=== PATIENT | male | born 1965 | race Caucasian/White ===

== ENCOUNTER 2016-06-09 18:52 | Inpatient (IN) | payer MEDICARE, OTHER ==
[~2016-06-09] VITALS: Ht 182.9 cm; Wt 74.9 kg
[~2016-06-09 18:52] MED LIST: HALO100P IM; HALO5 PO; SERO100T PO
[2016-06-09 19:03] VITALS: BP 141/93; PULSE 86; RESP 20; TEMP 99.8
[2016-06-09] MEDS ORDERED: DIPHTH/TETANUS/ACEL PERTUSSIS (BOOSTER) 0.5 ML VIAL/PFS IM ONE (19:15)
[2016-06-09] MEDS ORDERED: LORazepam 2 MG/ML VIAL IV PUSH ONE (19:30)
[2016-06-09 19:37] LABS: AUTOMATED NEUTROPHIL # 4.4 TH/MM3 (1.8-7.7); BASOPHIL # 0.1 TH/MM3 (0-0.2); EOSINOPHIL # 0.3 TH/MM3 (0-0.4); HEMATOCRIT 41.2 % (39.0-51.0); HEMO FLAGS DIFF FINAL; LYMPH % 26.2 % (9.0-44.0); LYMPHOCYTE # 1.9 TH/MM3 (1.0-4.8); MEAN CELL VOLUME 93.7 FL (80.0-100.0); MEAN CORPUSCULAR HEMOGLOBIN 32.1 PG (27.0-34.0); MEAN CORPUSCULAR HGB CONC 34.2 % (32.0-36.0); NEUT % 59.8 % (16.0-70.0); PLATELET COUNT 268 TH/MM3 (150-450); RED CELL DISTRIBUTION WIDTH 14.6 % (11.6-17.2); WHITE BLOOD COUNT 7.4 TH/MM3 (4.0-11.0)
--- NOTE | 2016-06-09 19:59 | PD ---
HPI Chief Complaint: Psychiatric Symptoms Time Seen by Provider: 19:53 Travel History International Travel<30 days: No Contact w/Intl Traveler<30days: No Traveled to known affect area: No History of Present Illness HPI 50-year-old male that presents to the ED for evaluation of psychiatric illness. Patient was Rico acted by police after apparently he was found acting bizarre patient apparently hit his head against a wall. Patient cannot really tell me why he did it. Patient does appear to be intoxicated. He does have a chronic history of schizophrenia. He is able to answer some basic questions but does appear to get agitated a question multiple times. He denies any pain of any kind to me at this time other than the head. He does have an abrasion to his head and HIS HAD FROM PREVIOUS INJURIES. He is really not good historian so he cannot really provide me much information. From my evaluation I do not see him interactive with any internal stimuli but does appear to be under the influence of substances at this time. Per patient his pain is moderate as he cannot really give me a number. He denies any homicidal or suicidal ideation to me. He cannot really tell me why he hit his head. PFSH Past Medical History Arthritis: Yes Autoimmune Disease: Yes (HEP C) Blood Disorders: No Anxiety: Yes Depression: Yes Cardiovascular Problems: No Diabetes: No Diminished Hearing: No Endocrine: No Genitourinary: No Hepatitis: Yes (told he has hep C) Immune Disorder: Yes Musculoskeletal: Yes Neurologic: No Psychiatric: Yes Reproductive: No Respiratory: No Immunizations Current: Yes Schizophrenia: Yes Thyroid Disease: No Past Surgical History Other Surgery: No Social History Alcohol Use: Yes (Drinking since he was 18) Tobacco Use: Yes (2 ppd) Substance Use: Yes (ETOH MARIJUANA OPIATES COCAINE) Allergies-Medications (Allergen,Severity, Reaction): Coded Allergies: No Known Allergies (Verified , 06/09/16) Reported Meds & Prescriptions Reported Meds & Active Scripts Active Active Prescriptions or Reported Medications Unobtainable Review of Systems ROS Limitations: Intoxication, Altered Mental Status General / Constitutional: No: Fever, Chills, Weight Gain, Weight Loss, Other Eyes: No: Diploplia, Blurred Vision, Photophobia, Drainage, Redness, Foreign Body Sensation, Pain, Tearing, Blind Spots, Visual changes, Blindness, Other HENT: Positive: Headaches, No: Vertigo, Lightheadedness, Sore Throat, Rhinitis , Rhinorrhea, Congestion, Nosebleed, Neck Stiffness, Neck Pain, Masses, Gingival Bleeding, Dental Difficulties, Ear Discharge, Earache, Other Cardiovascular: No: Chest Pain or Discomfort, Palpitations, Irregular Rhythm, Tachycardia, Diaphoresis, Syncope, Dyspnea on exertion, Varicosities, Edema, Cyanosis, Varicosities, Phlebitis, Claudication, Other Respiratory: No: Cough, Shortness of Breath, Wheezing, Sneezing, Orthopnea, Hemoptysis, Stridor, Night Sweats, Pleuritic Pain, Other Gastrointestinal: No: Nausea, Vomiting, Diarrhea, Abdominal Pain, Hematemesis, Hematochezia, Constipation, Changes in Bowel Habits, Indigestion, Dysphagia, Loss of Appetite, Other Genitourinary: No: Urgency, Frequency, Dysuria, Nocturia, Hematuria, Decreased Urinary Output, Oliguria, Hesitancy, Dribbling, Incontinence, Pelvic Pain, Flank Pain, Dyspareunia, Discharge, Dysmenorrhea, Menorrhagia, Metorrhagia, Vaginal Bleeding, Other Musculoskeletal: No: Myalgias, Arthralgias, Limited ROM, Weakness, Cramping, Edema, Pain, Atrophy, Other Skin: Positive Lesions, No Rash, No Itching, No Dryness, No Lumps, No Hives, No Change in Pigmentation, No Change in nails, No Alopecia, No Breast Lumps, No Breast Tenderness, No Breast Swelling, No Other Neurologic: No: Weakness, Dizziness, Syncope, Focal Abnormalities, Coordination Problem, Tremor, Ataxia, Headache, Change in Mentation, Slurred Speech, Paresthesia, Incontinence, Seizures, Sensory Disturbance, Other Psychiatric: Positive: Anxiety, Disorder of Thought, Mood Disorder, Substance Abuse, No: Depression, Suicidal Ideations, Homicidal Ideation, Other Endocrine: No: Heat Intolerance, Cold Intolerance, Polyuria, Polydipsia, Other Hematologic/Lymphatic: No: Easy Bruising, Lymph Node Enlargement, Other Physical Exam Exam Limitations: Intoxication, Poor Historian Narrative GENERAL: SKIN: Warm and dry. HEAD: Atraumatic. Normocephalic. Patient does have a small abrasion to the forehead with some old healing scars from previous injuries. No active bleeding at this time. EYES: Pupils equal and round 4 mm reactive to light and accommodation. No scleral icterus. No injection or drainage. ENT: No nasal bleeding or discharge. Mucous membranes pink and moist. Tongue is midline. No uvula deviation. NECK: Trachea midline. No JVD. CARDIOVASCULAR: Regular rate and rhythm. No murmurs, S3, S4. RESPIRATORY: No accessory muscle use. Clear to auscultation. Breath sounds equal bilaterally. GASTROINTESTINAL: Abdomen soft, non-tender, nondistended. Hepatic and splenic margins not palpable. MUSCULOSKELETAL: Extremities without clubbing, cyanosis, or edema. No obvious deformities. Full range of motion of the upper and lower extremities bilaterally. 2+ pulses bilaterally. Neurovascular intact. NEUROLOGICAL: Awake and alert. No obvious cranial nerve deficits. Motor grossly within normal limits. Five out of 5 muscle strength in the arms and legs. Normal speech. PSYCHIATRIC: Appropriate mood and affect; insight and judgment normal. Data Data Last Documented VS Vital Signs Date Time Temp Pulse Resp B/P Pulse Ox O2 Delivery O2 Flow Rate FiO2 06/10/16 13:26 98.6 60 18 149/74 99 Room Air Orders Complete Blood Count With Diff (06/09/16 19:11) Comprehensive Metabolic Panel (06/09/16 19:11) Urinalysis - C+S If Indicated (06/09/16 19:11) Psych Screen (06/09/16 19:11) Drug Screen, Random Urine (06/09/16 19:11) Alcohol (Ethanol) (06/09/16 19:11) Salicylates (Aspirin) (06/09/16 19:11) Tylenol (Acetaminophen) (06/09/16 19:11) Ct Brain W/O Iv Contrast(Rout) (06/09/16 ) [id number] (Booster) Inj (Boostrix (06/09/16 19:15) Lorazepam Inj (Ativan Inj) (06/09/16 19:30) ^ Sitter (06/09/16 19:23) Lorazepam Inj (Ativan Inj) (06/09/16 21:30) Diet Regular Basic (06/10/16 Breakfast) Haloperidol (Haldol) (06/10/16 11:00) Diphenhydramine (Benadryl) (06/10/16 11:00) Lorazepam Inj (Ativan Inj) (06/10/16 10:59) Diphenhydramine Inj (Benadryl Inj) (06/10/16 10:59) Haloperidol Inj (Haldol Inj) (06/10/16 10:59) Lorazepam (Ativan) (06/10/16 11:30) Diet Regular Basic (06/10/16 Lunch) Hand, Limited (2vws) (06/10/16 ) Hand, Limited (2vws) (06/10/16 ) Labs Laboratory Tests Test 06/09/16 06/09/16 19:05 21:20 White Blood Count 7.4 TH/MM3 Red Blood Count 4.40 MIL/MM3 Hemoglobin 14.1 GM/DL Hematocrit 41.2 % Mean Corpuscular Volume 93.7 FL Mean Corpuscular Hemoglobin 32.1 PG Mean Corpuscular Hemoglobin 34.2 % Concent Red Cell Distribution Width 14.6 % Platelet Count 268 TH/MM3 Mean Platelet Volume 8.2 FL Neutrophils (%) (Auto) 59.8 % Lymphocytes (%) (Auto) 26.2 % Monocytes (%) (Auto) 9.0 % Eosinophils (%) (Auto) 4.0 % Basophils (%) (Auto) 1.0 % Neutrophils # (Auto) 4.4 TH/MM3 Lymphocytes # (Auto) 1.9 TH/MM3 Monocytes # (Auto) 0.7 TH/MM3 Eosinophils # (Auto) 0.3 TH/MM3 Basophils # (Auto) 0.1 TH/MM3 CBC Comment DIFF FINAL Differential Comment Sodium Level 139 MEQ/L Potassium Level 3.9 MEQ/L Chloride Level 104 MEQ/L Carbon Dioxide Level 25.3 MEQ/L Anion Gap 10 MEQ/L Blood Urea Nitrogen 14 MG/DL Creatinine 1.09 MG/DL Estimat Glomerular Filtration 72 ML/MIN Rate Random Glucose 82 MG/DL Calcium Level 8.9 MG/DL Total Bilirubin 0.4 MG/DL Aspartate Amino Transf 23 U/L (AST/SGOT) Alanine Aminotransferase 25 U/L (ALT/SGPT) Alkaline Phosphatase 74 U/L Total Protein 7.3 GM/DL Albumin 4.0 GM/DL Salicylates Level 2.9 MG/DL Acetaminophen Level LESS THAN 2.0 MCG/ML Ethyl Alcohol Level 42 MG/DL Urine Color YELLOW Urine Turbidity CLEAR Urine pH 6.0 Urine Specific [place] 1.010 Urine Protein NEG mg/dL Urine Glucose (UA) NEG mg/dL Urine Ketones NEG mg/dL Urine Occult Blood NEG Urine Nitrite NEG Urine Bilirubin NEG Urine Urobilinogen LESS THAN 2.0 MG/DL Urine Leukocyte Esterase NEG Urine WBC LESS THAN 1 /hpf Urine Hyaline Casts 1 /lpf Microscopic Urinalysis Comment CULT NOT INDICATED Urine Opiates Screen NEG Urine Barbiturates Screen NEG Urine Amphetamines Screen NEG Urine Benzodiazepines Screen NEG Urine Cocaine Screen NEG Urine Cannabinoids Screen POS MDM Medical Decision Making Medical Screen Exam Complete: Yes Emergency Medical Condition: Yes Medical Record Reviewed: Yes Interpretation(s) CBC & BMP Diagram 06/09/16 19:05 Alcohol 42. Tox screen negative. CT of the head negative for acute disease. Differential Diagnosis Depression versus suicidal ideation versus anxiety versus adjustment disorder versus mood disorder versus bipolar disorder versus schizophrenia versus paranoid disorder versus psychosis versus substance abuse versus alcohol abuse versus alcohol induced psychosis versus homicidality addition versus cutting versus personality disorder versus head injury versus abrasion versus laceration versus ICH Narrative Course 50-year-old male that presents to the ED for evaluation of Rico act. Patient was properly examined and was found to have signs and symptoms consistent what appears to be psychiatric illness. Patient did suffer an injury to his head that was self-inflicted. CT was ordered. Labs were ordered. Patient will be medically clear pending labs. Patient was given tetanus booster. Patient will be medically clear. Okay to be seen by psych. Mental health screening was discussed with the patient. At 11:30 AM of 06/10/16 I was asked by psych nurse to evaluate patient is apparently he was given a be moved to the psychiatric floor but he had a mental breakdown when he punched a wall with both his arms. I was asked to evaluate his hands. Patient does have some soft tissue swelling but has full range of motion of the hands. Full range of motion of the fingers. No sign of deformity although he does have some bruising. I order x-rays of both hands. X -rays were negative for acute disease other than for a possible foreign body to the right second digit. On my reexamination patient has no pain or any sign of deformity to this area. No sign of infection. No sign of entry injury. I do not recommend removing this foreign body site believe that this is likely been there for a while. Patient was medically cleared again and he is okay to go to the psychiatric unit. Diagnosis Primary Impression: Schizophrenia Qualified Code: F20.9 - Schizophrenia, unspecified type Additional Impression: Head injury, acute Qualified Code: S09.90XA - Head injury, acute, initial encounter Scripts Unable to Obtain Active Prescriptions or Reported Meds Ritesh Landaverde Jun 09, 2016 19:59
[2016-06-09 20:05] LABS: ANION GAP 10 MEQ/L (5-15)
[2016-06-09 20:08] LABS: ALKALINE PHOSPHATASE 74 U/L (45-117); ALT (GPT) 25 U/L (12-78); AST (GOT) 23 U/L (15-37); BICARBONATE 25.3 MEQ/L (21.0-32.0); BLOOD UREA NITROGEN 14 MG/DL (7-18); CHLORIDE 104 MEQ/L (98-107); GLOMERULAR FILTRATION RATE 72 ML/MIN (>89); POTASSIUM 3.9 MEQ/L (3.5-5.1); SODIUM (NA) 139 MEQ/L (136-145); TOTAL BILIRUBIN ADULT 0.4 MG/DL (0.2-1.0)
[2016-06-09 20:12] LABS: ACETAMINOPHEN LESS THAN 2.0 MCG/ML (10.0-30.0)
--- NOTE | 2016-06-09 20:27 | RADRPT ---
EXAM DATE/TIME: 06/09/2016 19:53 [facility] COMPARISON: No previous studies available for comparison. INDICATIONS : Trauma; hit head. RADIATION DOSE: 45.97 CTDIvol (mGy) MEDICAL HISTORY : Hepatitis C. Substance abuse. SURGICAL HISTORY : None. ENCOUNTER: Initial ACUITY: 1 day PAIN SCALE: 5/10 LOCATION: cranial TECHNIQUE: Multiple contiguous axial images were obtained of the head. Using automated exposure control and adj ustment of the mA and/or kV according to patient size, radiation dose was kept as low as reasonably a chievable to obtain optimal diagnostic quality images. FINDINGS: CEREBRUM: The ventricles are normal for age. No evidence of midline shift, mass lesion, hemorrhage or acute in farction. No extra-axial fluid collections are seen. POSTERIOR FOSSA: The cerebellum and brainstem are intact. The 4th ventricle is midline. The cerebellopontine angle i s unremarkable. EXTRACRANIAL: The visualized portion of the orbits is intact. SKULL: The calvaria is intact. No evidence of skull fracture. CONCLUSION: Normal examination. Michael Mcallister MD on June 09, 2016 at 20:24 Board Certified Radiologist. This report was verified electronically.
[2016-06-09] MEDS ORDERED: LORazepam 2 MG/ML VIAL IM ONE (21:30)
[2016-06-09 21:52] LABS: BLOOD, URINE NEG (NEG); COMMENT (UR) CULT NOT INDICATED; CULTURE IF INDICATED CULT NOT INDICATED; GLUCOSE,URINE NEG (NEG); HYALINE CAST, URINE 1 /lpf (RARE); KETONE, URINE NEG (NEG); NITRITE,URINE NEG (NEG); URINE COLOR YELLOW (YELLW/STRAW)
[2016-06-09 22:20] VITALS: BP 116/73; PULSE 72; RESP 19; TEMP 98.9; O2SAT 95
[2016-06-10 02:41] VITALS: BP 110/59; PULSE 75; RESP 59; O2SAT 98
[2016-06-10 04:11] LABS: AMPHETAMINE, URINE NEG (NEG); BARBITURATES, URINE NEG (NEG); COCAINE, URINE NEG (NEG)
[2016-06-10 06:11] VITALS: BP 103/65; PULSE 64; RESP 19; O2SAT 100
[2016-06-10 10:18] VITALS: BP 118/78; PULSE 86; RESP 18; O2SAT 95
[2016-06-10] MEDS ORDERED: LORazepam 2 MG/ML VIAL ONE (10:59)
[2016-06-10] MEDS ORDERED: HALOPERIDOL LACTATE 5 MG/ML AMP ONE (10:59)
[2016-06-10] MEDS ORDERED: diphenhydrAMINE HCL 50 MG/ML VIAL ONE (10:59)
[2016-06-10] MEDS ORDERED: diphenhydrAMINE HCL 50 MG CAP PO PRN (11:00)
[2016-06-10] MEDS ORDERED: HALOPERIDOL 10 MG TAB PO ONE (11:00)
[2016-06-10] MEDS ORDERED: LORazepam 2 MG TAB PO ONE (11:30)
[2016-06-10 13:26] VITALS: BP 149/74; PULSE 60; RESP 18; TEMP 98.6; O2SAT 99
--- NOTE | 2016-06-10 13:50 | RADRPT ---
EXAM DATE/TIME: 06/10/2016 13:26 [facility] COMPARISON: No previous studies available for comparison. INDICATIONS : Fall, Left hand pain. MEDICAL HISTORY : None. SURGICAL HISTORY : None. ENCOUNTER: Initial ACUITY: 2 days PAIN SCORE: 3/10 LOCATION: Left hand FINDINGS: A limited two-view examination of the left hand was obtained and not a standard 4 view trauma series limiting the sensitivity. This demonstrates soft tissue swelling over the dorsum of the hand with no acute fracture or malalignment. The metacarpals and phalanges are intact. There are no radiopaque for eign bodies. CONCLUSION: Negative limited two-view exam. Live Liang MD on June 10, 2016 at 13:48 Board Certified Radiologist. This report was verified electronically.
--- NOTE | 2016-06-10 13:52 | RADRPT ---
EXAM DATE/TIME: 06/10/2016 13:29 [facility] COMPARISON: No previous studies available for comparison. INDICATIONS : Fall, right hand pain. MEDICAL HISTORY : None. SURGICAL HISTORY : None. ENCOUNTER: Initial ACUITY: 2 days PAIN SCORE: 3/10 LOCATION: Right hand FINDINGS: Limited AP and lateral views of the right hand were obtained and not a standard 3 view trauma series limiting the sensitivity. This demonstrates no acute fracture or malalignment. There is a small radio paque foreign body along the dorsum of the second distal phalanx. This measures approximately 3 x 1 c m in diameter. The metacarpals and phalanges appear intact. There is no definite focal soft tissue ab normality. CONCLUSION: 1. Small radiopaque foreign body along the dorsum of the second distal phalanx. 2. No acute fracture or malalignment on this limited 2 view study. Live Liang MD on June 10, 2016 at 13:49 Board Certified Radiologist. This report was verified electronically.
--- NOTE | 2016-06-10 15:30 | PD ---
History of Present Illness Chief Complaint: Psychiatric Symptoms Time Seen by Provider: 15:15 Travel History International Travel<30 Days: No Contact w/Intl Traveler<30days: No Known affected area: No Legal Status Legal Status: Rico Act Rico Act Signed By: [employer] [employer] History of Present Illness: History of Present Illness 50-year-old male with history of schizophrenia and substance use disorder who presents to the ED under a BA initiated by VALERIA. He was placed under the BA after apparently he was found acting in a bizarre manner and apparently hit his head with a brick. Patient cannot really tell me why he did it. In ED he was able to answer some basic questions but was agitated. Patient reported to psych screener that " people were getting on his nerves and that he was hitting himself hard but was not trying to kill himself". Patient presents with BAL of 42 and positive toxicology for cannabinoids. As per EMR he was [place] [facility] [place] the care of Dr. Miner. IAt that time he was placed on Haldol Dec but is questionable if he has complied with his psychiatric treatment. Patient was accepted to [facility] but he became agitated at the time of transfer and was yelling and screaming obscenities as well as he began to punch the elam with his fists. He required ETO and responded well with decrease in agitated behavior. PFSH Past Medical History Arthritis: Yes Autoimmune Disease: Yes (HEP C) Blood Disorders: No Anxiety: Yes Depression: Yes Cardiovascular Problems: No Diabetes: No Diminished Hearing: No Endocrine: No Genitourinary: No Hepatitis: Yes (told he has hep C) Immune Disorder: Yes Musculoskeletal: Yes Neurologic: No Psychiatric: Yes Reproductive: No Respiratory: No Immunizations Current: Yes Schizophrenia: Yes Thyroid Disease: No Past Surgical History Other Surgery: No Psychiatric History Psychiatric History Hx Psychiatric Treatment: SCHIZOPHRENIA History of Inpatient Treatment: Yes (Last hosp in 2013) Guns or firearms in home: No Social History Patient reports he lives with roommates.Unemployed Hx Alcohol Use: Yes (Drinking since he was 18) Hx Tobacco Use: Yes (2 ppd) Hx Substance Use: Yes (ETOH MARIJUANA OPIATES COCAINE) Substance Use Type: Alcohol, Nicotine/Cigarettes, Cocaine Hx of Substance Use Treatment: Yes ([facility]) Family Psychiatric History Unable to obtain Allergies-Medications (Allergen,Severity, Reaction): Coded Allergies: No Known Allergies (Verified , 06/09/16) Reported Meds & Prescriptions Reported Meds & Active Scripts Active Active Prescriptions or Reported Medications Unobtainable Review of Systems ROS Limitations: Uncooperative, Psychotic Exam Alert: Yes [place]: Person Mood: Agitated Affect: Other (congruent) Speech: Clear, Illogical Eye Contact: Indirect Memory Intact: Comment (not tested) Delusions: No (unable to assess) Suicidal: Ideation (he deneis) Homicidal: Ideation (deneis) Insight/Judgement Poor. Impaired MDM Medical Decision Making Medical Record Reviewed: Yes Assessment/Plan 50 year old male w hx of schizophrenia and substance use who present a after he was hitting himself with a brick. While in J pod he was intermittently agitated AEB yelling and screaming as well as punching the elam with his bare hands. Patient was not appropriate for transport to another facility since there was no bed availability at this hospital. At this time I am informed that he may be admitted to [facility] [place] is a bed available. He clearly presents a risk to himself due to recent self injurious behavior. Requires inpatient treatment to stabilize, maintain safety and restart psychotropic medication. Orders Complete Blood Count With Diff (06/09/16 19:11) Comprehensive Metabolic Panel (06/09/16 19:11) Urinalysis - C+S If Indicated (06/09/16 19:11) Psych Screen (06/09/16 19:11) Drug Screen, Random Urine (06/09/16 19:11) Alcohol (Ethanol) (06/09/16 19:11) Salicylates (Aspirin) (06/09/16 19:11) Tylenol (Acetaminophen) (06/09/16 19:11) Ct Brain W/O Iv Contrast(Rout) (06/09/16 ) [id number] (Booster) Inj (Boostrix (06/09/16 19:15) Lorazepam Inj (Ativan Inj) (06/09/16 19:30) ^ Sitter (06/09/16 19:23) Lorazepam Inj (Ativan Inj) (06/09/16 21:30) Diet Regular Basic (06/10/16 Breakfast) Haloperidol (Haldol) (06/10/16 11:00) Diphenhydramine (Benadryl) (06/10/16 11:00) Lorazepam Inj (Ativan Inj) (06/10/16 10:59) Diphenhydramine Inj (Benadryl Inj) (06/10/16 10:59) Haloperidol Inj (Haldol Inj) (06/10/16 10:59) Lorazepam (Ativan) (06/10/16 11:30) Diet Regular Basic (06/10/16 Lunch) Hand, Limited (2vws) (06/10/16 ) Hand, Limited (2vws) (06/10/16 ) Results Vital Signs Date Time Temp Pulse Resp B/P Pulse Ox O2 Delivery O2 Flow Rate FiO2 06/10/16 13:26 98.6 60 18 149/74 99 Room Air 06/10/16 10:18 86 18 118/78 95 Room Air 06/10/16 06:11 64 19 103/65 100 Room Air 06/10/16 02:41 75 59 110/59 98 Room Air 06/09/16 22:20 98.9 72 19 116/73 95 Room Air 06/09/16 19:03 99.8 86 20 141/93 Laboratory Tests Test 06/09/16 06/09/16 19:05 21:20 White Blood Count 7.4 Red Blood Count 4.40 Hemoglobin 14.1 Hematocrit 41.2 Mean Corpuscular Volume 93.7 Mean Corpuscular Hemoglobin 32.1 Mean Corpuscular Hemoglobin 34.2 Concent Red Cell Distribution Width 14.6 Platelet Count 268 Mean Platelet Volume 8.2 Neutrophils (%) (Auto) 59.8 Lymphocytes (%) (Auto) 26.2 Monocytes (%) (Auto) 9.0 Eosinophils (%) (Auto) 4.0 Basophils (%) (Auto) 1.0 Neutrophils # (Auto) 4.4 Lymphocytes # (Auto) 1.9 Monocytes # (Auto) 0.7 Eosinophils # (Auto) 0.3 Basophils # (Auto) 0.1 CBC Comment DIFF FINAL Differential Comment Sodium Level 139 Potassium Level 3.9 Chloride Level 104 Carbon Dioxide Level 25.3 Anion Gap 10 Blood Urea Nitrogen 14 Creatinine 1.09 Estimat Glomerular Filtration 72 Rate Random Glucose 82 Calcium Level 8.9 Total Bilirubin 0.4 Aspartate Amino Transf 23 (AST/SGOT) Alanine Aminotransferase 25 (ALT/SGPT) Alkaline Phosphatase 74 Total Protein 7.3 Albumin 4.0 Salicylates Level 2.9 Acetaminophen Level LESS THAN 2.0 Ethyl Alcohol Level 42 Urine Color YELLOW Urine Turbidity CLEAR Urine pH 6.0 Urine Specific [place] 1.010 Urine Protein NEG Urine Glucose (UA) NEG Urine Ketones NEG Urine Occult Blood NEG Urine Nitrite NEG Urine Bilirubin NEG Urine Urobilinogen LESS THAN 2.0 Urine Leukocyte Esterase NEG Urine WBC LESS THAN 1 Urine Hyaline Casts 1 Microscopic Urinalysis Comment CULT NOT INDICATED Urine Opiates Screen NEG Urine Barbiturates Screen NEG Urine Amphetamines Screen NEG Urine Benzodiazepines Screen NEG Urine Cocaine Screen NEG Urine Cannabinoids Screen POS Diagnosis Primary Impression: Schizophrenia Additional Impression: Substance use disorder Admitting Information Admitting Physician Requests: Admit (Dr. Dunne) Departure Forms: Tests/Procedures Patient Instructions: General Instructions, Schizophrenia (ED), Head Injury (ED ), Medical Clearance for Psychiatric Care (ED) Additional Instructions: Go directly to the [facility] in [place], [place]. Prescriptions Unable to Obtain Active Prescriptions or Reported Meds Disposition: 65 DISC TO PSYCH CARE FACILITY Condition: Stable Problem Qualifiers Primary Impression: Schizophrenia Qualified Code: F20.9 - Schizophrenia, unspecified type Gisela Guallpa Jun 10, 2016 15:30
[2016-06-10] MEDS ORDERED: MAGNESIUM HYDROXIDE SUSP 30 ML CUP PO PRN (16:00)
[2016-06-10] MEDS ORDERED: HALOPERIDOL LACTATE 5 MG/ML AMP IM PRN (16:00)
[2016-06-10] MEDS ORDERED: BENZTROPINE MESYLATE 1 MG TAB PO PRN (16:00)
[2016-06-10] MEDS ORDERED: ACETAMINOPHEN 325 MG TAB PO PRN (16:00)
[2016-06-10] MEDS ORDERED: ALUMINUM/MAGNESIUM/SIMETH 30 ML CUP PO PRN (16:00)
[2016-06-10] MEDS ORDERED: LORazepam 2 MG/ML VIAL IM PRN (16:15)
[2016-06-10] MEDS ORDERED: LORazepam 1 MG TAB PO PRN (16:15)
[2016-06-10 16:18] VITALS: BP 86/50; PULSE 78; RESP 18; O2SAT 93
[2016-06-10 17:00] VITALS: BP 123/59; PULSE 95; RESP 18; TEMP 99.2; O2SAT 95
[2016-06-11 05:29] VITALS: BP 110/64; PULSE 98; RESP 18; TEMP 98.2; O2SAT 97
[2016-06-11 08:11] LABS: ANION GAP 8 MEQ/L (5-15); BICARBONATE 24.4 MEQ/L (21.0-32.0); BLOOD UREA NITROGEN 12 MG/DL (7-18); CHLORIDE 108 MEQ/L (98-107); GLOMERULAR FILTRATION RATE 94 ML/MIN (>89); POTASSIUM 4.3 MEQ/L (3.5-5.1); SODIUM (NA) 140 MEQ/L (136-145)
[2016-06-11 08:13] LABS: HDL CHOLESTEROL 68.3 MG/DL (40.0-60.0); LDL CHOLESTEROL 48 MG/DL (0-99)
[2016-06-11] MEDS ORDERED: LORazepam 2 MG/ML VIAL IV PUSH PRN ×4 (11:30)
[2016-06-11] MEDS ORDERED: fluPHENAZine HCL 25 MG/10 ML VIAL IM PRN (11:30)
[2016-06-11] MEDS ORDERED: LORazepam 2 MG TAB PO PRN (11:30)
[2016-06-11] MEDS ORDERED: BENZTROPINE MESYLATE 2 MG/2 ML VIAL IM PRN (11:30)
[2016-06-11] MEDS ORDERED: FLUMAZENIL 0.5 MG/5 ML VIAL IV PUSH PRN (11:30)
[2016-06-11] MEDS ORDERED: LORazepam 1 MG TAB PO PRN (11:30)
--- NOTE | 2016-06-11 11:30 | HHI.HP ---
Provisional Diagnosis Admission Date Jun 10, 2016 at 15:57 [place] I. 1. Schizophrenia, paranoid type, acute exacerbation 2. Alcohol abuse 3. Cannabis abuse [place] II. Deferred [place] V. GAF is 15 presently Certification of Person's Competence To Provide Express and Informed Consent I have personally examined Sheng De Leon , a person being served at [facility] on, Jun 11, 2016 11:29. Express and informed consent means consent voluntarily given in writing, by a competent person, after sufficient explanation and disclosure of the subject matter involved to enable the person to make a knowing and willful decision without any element of force, fraud, deceit, duress, or other form of constraint or coercion. This person is 18 years of age or older, is not now known to be incompetent to consent to treatment with a guardian advocate, and does not have a health care surrogate or proxy currently making medical treatment decisions. I have found this person to be one of the following: [] Competent to provide express and informed consent, as defined above, for voluntary admission to this facility and is competent to provide express and informed consent for treatment. He/she has the consistent capacity to make well reasoned, willful, and knowing decisions concerning his or her medical or mental health treatment. The person fully and consistently understands the purpose of the admission for examination/placement and is fully capable of personally exercising all rights assured under [place] [x] Incompetent to provide express and informed consent to voluntary admission, and this is incompetent to provide express and informed consent to treatment. The person must be transferred to involuntary status and a petition for a guardian advocate filed with the Circuit Court. [] Refusing to provide express and informed consent to voluntary admission but is competent to provide express and informed consent for treatment. The person must be discharged or transferred to involuntary status. Form shall be completed within 24 hours of a person's arrival at the receiving facility and filed in the clinical record of each person: 1. Admitted on a voluntary basis 2. Permitted to provide express and informed consent to his/her own treatment 3. Allowed to transfer from involuntary to voluntary status 4. Prior to permitting a person to consent to his or her own treatment after having been previously found incompetent to consent to treatment. History of Present Illness Capacity: Lacks Capacity HPI Mr. De Leon is a 50-year-old male with history of schizophrenia and substance use issues who presents under a [place] act after intentionally hitting his head. Patient was evaluated medically in the ED by the ED provider and psychiatrically by the psychiatric nurse practitioner. Patient was agitated in the ED and required ETO. Reviewing the electronic medical record, I see an extensive history of prior psychiatric hospitalizations, most recently [place] [address] Miner. It appears he has been treated with Haldol Decanoate here in the past. Patient seen and examined with counselor nursing staff. Chart reviewed. Case discussed with nurse on the inpatient psychiatric unit. On my examination today , the patient is extremely irritable. He is unable to tolerate all that the briefest of interviews before becoming explosively angry and threatening. He daren, "you took enough blood to float a goddamn boat!" Of the circumstances here, he says, "I was in a field beating myself with a piece of porcelain." He is frankly internally stimulated and mutters to himself more or less continuously when he is not answering a direct question. He exhibits echolalia and echopraxia. He is paranoid. His affect is severely dysphoric. He becomes so agitated and threatening that an assault on the treatment team seems imminent , and we have to conclude the interview for safety. He does calm himself somewhat once we have removed ourselves, and he does not receive an ETO at this time. Patient's outpatient outpatient case manager, Felisha Hernandez is visiting the unit and notes [place]. She notes that he has done well with Prolixin PO and Dec in the past. Medication adherence is an issue for this patient. I am unable to obtain any past psychiatric, family, chemical dependency or social history from this patient at this time because of his degree of agitation and psychiatric impairment. Review of Systems ROS Limitations: Uncooperative, Combative, Psychotic, Poor Historian Other No reported somatic complaints. Past Psych History Psychological trauma history Unable to obtain Violence risk - others (6 mos) Extremely high risk. Agitated and psychotic. Violence risk - self (6 mos) High risk, chiefly due to self-neglect. Substance Abuse History Drugs/Alcohol past 12 months Unable to obtain Past Family Social History Coded Allergies: No Known Allergies (Verified , 06/09/16) Past Medical History See electronic medical record Discontinued Reported Medications Quetiapine Fumarate 100 mg (Seroquel 100 mg)100 Mg [id number] Mg PO HS 06/24/13 Haldol [id number] Mg/M2 100 Mg/Ml [id number] Mg IM Q28D PRN (next due on 07/15/2013) 06/24/13 Haloperidol (Haldol)5 Mg Tab5 Mg PO HS 06/24/13 Current Medications Medications (Trade) Dose Ordered Sig/Tania Route Start Time Stop Time Status Last Admin (Tylenol) 650 mg Q4H PRN PO 06/10/16 16:00 (Milk Of Magnesia Liq) 30 ml DAILY PRN PO 06/10/16 16:00 (Mag-Al Plus Susp Liq) 30 ml Q6H PRN PO 06/10/16 16:00 (Cogentin) 1 mg Q12H PRN PO 06/10/16 16:00 (Haldol Inj) 5 mg Q6H PRN IM 06/10/16 16:00 (Ativan) 1 mg Q6H PRN PO 06/10/16 16:15 (Ativan Inj) 1 mg Q6H PRN IM 06/10/16 16:15 Family History Unable to obtain Social History Unable to obtain Patient's Strengths (min. 2) In a monitored setting. Verbally fluent. Physical Exam Physical examination completed by ED provider. On my examination today I do note patient's for head wound but the patient otherwise appears to be in no acute physical distress. Except for the echopraxia, no motoric abnormalities noted. Labs and vital signs reviewed. Vital Signs Vital Signs Date Time Temp Pulse Resp B/P Pulse Ox O2 Delivery O2 Flow Rate FiO2 06/11/16 05:29 98.2 98 18 110/64 97 06/10/16 16:18 Room Air Lab Results Item Value Date Time White Blood Count 7.4 TH/MM3 06/09/161904 Hemoglobin 14.1 GM/DL 06/09/161904 Platelet Count 268 TH/MM3 06/09/161904 Sodium Level 140 MEQ/L 06/11/16714 Potassium Level 4.3 MEQ/L 06/11/16714 Chloride Level 108 MEQ/L H 06/11/16 07 Carbon Dioxide Level 24.4 MEQ/L 06/11/1615 Blood Urea Nitrogen 12 MG/DL 06/11/16 0715 Creatinine 0.86 MG/DL 06/11/1615 Aspartate Amino Transf (AST/SGOT) 23 U/L 06/09/161904 Alanine Aminotransferase (ALT/SGPT) 25 U/L 06/09/161904 Alkaline Phosphatase 74 U/L 06/09/161904 Urine Cannabinoids Screen POS H 06/09/162119 Ethyl Alcohol Level 42 MG/DL H 06/09/161904 Urinalysis bland Last Impressions Hand X-Ray 06/10/16 0000 Signed Impressions: Service Date/Time: Friday, June 10, 2016 13:29 - CONCLUSION: 1. Small radiopaque foreign body along the dorsum of the second distal phalanx. 2. No acute fracture or malalignment on this limited 2 view study. Live Liang MD Head CT 06/09/16 0000 Signed Impressions: Service Date/Time: Thursday, June 09, 2016 19:53 - CONCLUSION: Normal examination. Michael Mcallister MD Mental Status Examination Patient is in hospital gown. He is extremely disheveled and malodorous. He is awake and alert and oriented to person and knows that he is in the hospital. Echopraxia is present. Speech is loud and angry. Language and fund of knowledge are difficult to assess given his degree of psychiatric impairment. Mood and affect are dysphoric and restricted. Thought process somewhat disorganized. Associations loose. Paranoia is present and marked. Patient is frankly internally stimulated. He is actively threatening towards the treatment team. No suicidal ideation voiced but the patient is most certainly unreliable to contract for safety. Insight and judgment are presently very poor. Assessment & Plan Problem List: (1) Schizophrenia ICD Code: F20.9 (2) Alcohol abuse ICD Code: F10.10 (3) Cannabis abuse ICD Code: F12.10 Assessment & Plan This is a 50-year-old male with psychiatric history as detailed above who presents on a [place] act following self injury. On my examination today, the patient is floridly psychotic, agitated and threatening. He is frankly internally stimulated and paranoid. Without proper care and treatment he would doubtless pose a grave risk of harm to himself or others in his present state. We will admit the patient to the inpatient psychiatric unit for safety, observation and stabilization. Admit inpatient. Involuntary status. I have completed first opinion. Consult for second opinion. Request healthcare surrogate and guardian advocate. Violent precautions. Given prior good response reported by his outpatient case manager to Prolixin, I will order Prolixin by mouth with IM backup with plans to titrate to effect. Plan for Prolixin Decanoate. Haldol as needed for agitation, Ativan as needed for anxiety, Cogentin as needed for EPS. CIWA with Ativan as needed for withdrawal. Thiamine and folate. Seizure and fall precautions. I will order bacitracin for the patient's for head wound. Vitals every shift. Counselor to see. Disposition planning. Estimated length of stay: 10-13 days. Discharge Planning Pending psychiatric stabilization Request HC Surrog/Guard Advoc?: Yes Problem Qualifiers (1) Schizophrenia: Qualified Code: F20.0 - Paranoid schizophrenia Sheldon Dunne MD Jun 11, 2016 11:30
[2016-06-11] MEDS: FOLIC ACID 1 MG TAB PO SCH (13:01)
[2016-06-11] MEDS: THIAMINE HCL 100 MG TAB PO SCH (13:01)
[2016-06-11 15:45] LABS: HEMOGLOBIN A1a 1.1 %; HEMOGLOBIN A1b 1.6 %; HEMOGLOBIN Ao 84.3 %; HEMOGLOBIN F 0.2 %; HEMOGLOBIN LA1C 2.1 %; HEMOGLOBIN P3 3.9 %
[2016-06-11] MEDS ORDERED: LORazepam 2 MG/ML VIAL IM PRN (16:15)
[2016-06-11] MEDS: BACITRACIN TOP OINT 15 GM TUBE TOP SCH (20:58)
[2016-06-12 06:11] VITALS: BP 102/64; PULSE 85; RESP 17; TEMP 97.5; O2SAT 95
[2016-06-12] MEDS: THIAMINE HCL 100 MG TAB PO SCH (09:00)
[2016-06-12] MEDS: FOLIC ACID 1 MG TAB PO SCH (09:00)
[2016-06-12] MEDS: BACITRACIN TOP OINT 15 GM TUBE TOP SCH ×2 (09:00→21:00)
--- NOTE | 2016-06-12 09:49 | HHI.PYPN ---
Subjective Remarks Patient seen and examined with counselor. Chart reviewed. Case discussed with nursing staff. Medications remain on hold for lack of consent. On my examination today, the patient is lying calmly in his room but once engaged becomes explosively angry and irritable again. He continues to exhibit echolalia and echopraxia. He is frankly internally stimulated and muttering to himself. Condition is more or less unchanged from yesterday. Review of Systems ROS Limitations: Uncooperative, Psychotic, Poor Historian Other Unable to obtain in any meaningful sense from the patient at this time Objective Alert: Yes [place]: Person Mood: Agitated (remains quite easily agitated) Affect: Labile Memory Intact: Comment (not formally assessed) Hallucinations: Auditory (appears frankly internally stimulated and is muttering to himself) Delusions: Yes Delusion Type: Paranoid Suicidal: Ideation (no SI voiced but patient is unreliable to contract for safety.) Homicidal: Ideation (explosive temper. No homicidal ideation voiced.) Insight/Judgement Very poor at present Remarks Besides the echopraxia, no motoric abnormalities noted. No signs of withdrawal noted. Thought process fairly disorganized. Labs Labs reviewed. No new labs. Vitals/IOs Vital Signs Date Time Temp Pulse Resp B/P Pulse Ox O2 Delivery O2 Flow Rate FiO2 06/12/16 06:11 97.5 85 17 102/64 95 06/10/16 16:18 Room Air Assessment & Plan Problem List: (1) Schizophrenia ICD Code: F20.9 (2) Alcohol abuse ICD Code: F10.10 (3) Cannabis abuse ICD Code: F12.10 Assessment & Plan Still awaiting consents for psychotropic medications. Patient is desperately in need of antipsychotic action at this point and remains decompensated to a severe degree. He remains at exquisitely high risk for violence if provoked. I did try to call the number for his friend Shazia in the EMR but no one picked up. Continue to monitor for safety on the inpatient psychiatric unit. Continue other medications and care as ordered. Justification for Cont. Inpt. Impairments in safety. Impairments in reality testing. Impairments in social function. Very high risk for decompensation in a less restrictive environment. Discharge Planning Pending psychiatric stabilization. Request HC Surrog/Guard Advoc?: Yes Problem Qualifiers (1) Schizophrenia: Qualified Code: F20.0 - Paranoid schizophrenia Sheldon Dunne MD Jun 12, 2016 09:49
--- NOTE | 2016-06-12 12:28 | PD.CONS ---
Provisional Diagnosis Admission Date Jun 10, 2016 at 15:57 [place] I. 1. Schizophrenia, paranoid type, acute exacerbation 2. Alcohol abuse 3. Cannabis abuse [place] II. Deferred [place] V. GAF is 15 presently History of Present Illness Service Psychiatry Consult Requested By Primary Care Physician Unknown HPI Mr. De Leon is a 50-year-old male with history of schizophrenia and substance use issues who presents under a [place] act after intentionally hitting his head. Patient was evaluated medically in the ED by the ED provider and psychiatrically by the psychiatric nurse practitioner. Patient was agitated in the ED and required ETO. Reviewing the electronic medical record, I see an extensive history of prior psychiatric hospitalizations, most recently [place] [address] Miner. It appears he has been treated with Haldol Decanoate here in the past. Patient seen and examined with counselor nursing staff. Chart reviewed. Case discussed with nurse on the inpatient psychiatric unit. On my examination today , the patient is extremely irritable. He is unable to tolerate all that the briefest of interviews before becoming explosively angry and threatening. He daren, "you took enough blood to float a goddamn boat!" Of the circumstances here, he says, "I was in a field beating myself with a piece of porcelain." He is frankly internally stimulated and mutters to himself more or less continuously when he is not answering a direct question. He exhibits echolalia and echopraxia. He is paranoid. His affect is severely dysphoric. He becomes so agitated and threatening that an assault on the treatment team seems imminent , and we have to conclude the interview for safety. He does calm himself somewhat once we have removed ourselves, and he does not receive an ETO at this time. Patient's outpatient case technician, Felisha Hernandez is visiting the unit and notes that [place]. She notes that he has done well with Prolixin PO and Dec in the past. Medication adherence is an issue for this patient. I am unable to obtain any past psychiatric, family, chemical dependency or social history from this patient at this time because of his degree of agitation and psychiatric impairment. 06/12/16 Above note dictated by Dr. Dunne reviewed and agreed with. Patient is a 50- year-old white male well-known to us from prior admissions admitted to Dr. dunne under the [place] act. Chart reviewed. Patient seen with nurse. Patient markedly disorganized psychotic somewhat irritable intimidating. Dr. Dunne first opinion petition supporting [place] act. I agree. Patient meets criteria for involuntary psychiatric hospitalization under the [place] act. Thus I'll cosign second opinion petition supporting [place] act Past Family Social History Coded Allergies: No Known Allergies (Verified , 06/09/16) Discontinued Reported Medications Quetiapine Fumarate 100 mg (Seroquel 100 mg)100 Mg [id number] Mg PO HS 06/24/13 Haldol [id number] Mg/M2 100 Mg/Ml Etg238 Mg IM Q28D PRN (next due on 07/15/2013) 06/24/13 Haloperidol (Haldol)5 Mg Tab5 Mg PO HS 06/24/13 Current Medications Medications (Trade) Dose Ordered Sig/Tania Route Start Time Stop Time Status Last Admin (Tylenol) 650 mg Q4H PRN PO 06/10/16 16:00 (Milk Of Magnesia Liq) 30 ml DAILY PRN PO 06/10/16 16:00 (Mag-Al Plus Susp Liq) 30 ml Q6H PRN PO 06/10/16 16:00 (Cogentin) 1 mg Q12H PRN PO 06/10/16 16:00 (Haldol Inj) 5 mg Q6H PRN IM 06/10/16 16:00 Hold (Ativan) 2 mg Q6H PRN PO 06/11/16 16:15 Hold (Ativan Inj) 2 mg Q6H PRN IM 06/11/16 16:15 Hold (Cogentin Inj) 1 mg Q12HR PRN IM 06/11/16 11:30 (Prolixin) 5 mg Q12HR PO 06/11/16 11:30 Hold (Prolixin Inj) 2.5 mg Q12HR PRN IM 06/11/16 11:30 Hold (Romazicon Inj) 0.2 mg Q1M PRN IV PUSH 06/11/16 11:30 (Ativan) 1 mg Q4H PRN PO 06/11/16 11:30 06/11/16 20:59 (Ativan Inj) 1 mg Q4H PRN IV PUSH 06/11/16 11:30 (Ativan) 2 mg Q2H PRN PO 06/11/16 11:30 (Ativan Inj) 2 mg Q2H PRN IV PUSH 06/11/16 11:30 (Ativan Inj) 2 mg Q1H PRN IV PUSH 06/11/16 11:30 (Ativan Inj) 2 mg Q15M PRN IV PUSH 06/11/16 11:30 (Vitamin B1) 100 mg DAILY PO 06/11/16 11:30 06/12/16 09:00 (Folate) 1 mg DAILY PO 06/11/16 11:30 06/12/16 09:00 (Baciguent Oint) 1 applic Q12HR TOP 06/11/16 21:00 06/12/16 09:00 Patient's Strengths (min. 2) In a monitored setting. Verbally fluent. Physical Exam Vital Signs Vital Signs Date Time Temp Pulse Resp B/P Pulse Ox O2 Delivery O2 Flow Rate FiO2 06/12/16 06:11 97.5 85 17 102/64 95 06/10/16 16:18 Room Air Mental Status Examination Speech: Rapid, Circumstantial, Tangential Orientation: Place Memory: Impaired (describe) Thought Process: Loose Association Thought Content: Paranoid Hallucination Type: None (denies that appears to be responding to internal stimuli) Attention and Concentration: Easily Distracted Suicidal Ideation: Yes (states he always has suicidal ideation) Previous Suicide Attempts: No Homicidal Ideation: No Previous Homicide Attempts: No Insight: Poor Judgement: Poor Affect: Other (slight increased range and intensity) Mood: Angry, Irritable Motor Activity: Normal gait Assessment & Plan Problem List: (1) Schizophrenia ICD Code: F20.9 (2) Alcohol abuse ICD Code: F10.10 (3) Cannabis abuse ICD Code: F12.10 Assessment & Plan Estimated LOS: days Request HC Surrog/Guard Advoc?: Yes Problem Qualifiers (1) Schizophrenia: Qualified Code: F20.0 - Paranoid schizophrenia Alexys Puga MD Jun 12, 2016 12:28
[2016-06-12 20:06] VITALS: BP 124/71; PULSE 76; RESP 18; TEMP 98.1; O2SAT 96
[2016-06-13 05:55] VITALS: BP 118/61; PULSE 72; RESP 17; TEMP 97.9; O2SAT 95
[2016-06-13] MEDS: THIAMINE HCL 100 MG TAB PO SCH (08:09)
[2016-06-13] MEDS: FOLIC ACID 1 MG TAB PO SCH (08:09)
[2016-06-13] MEDS: BACITRACIN TOP OINT 15 GM TUBE TOP SCH ×2 (08:25→20:26)
--- NOTE | 2016-06-13 12:12 | HHI.PYPN ---
Subjective Remarks Patient seen and examined with counselor. Chart reviewed. Case discussed with nursing staff. On my examination today, patient remains quite irritable but is a little less explosive. He is discharged focused. He says that his sleep is poor and requests Unisom. He says that he might try to take a shower today. He remains frankly internally stimulated and paranoid. He says, "I don't think you can change me, doc." He maintains that he was adherent with medications, which apparently included Haldol, prior to admission. Review of Systems ROS Limitations: Psychotic, Poor Historian Other No somatic complaints today Objective Alert: Yes [place]: Person, Place Mood: Angry Affect: Labile Memory Intact: Comment (not formally assessed) Hallucinations: Auditory (remains int stim) Delusions: Yes Delusion Type: Paranoid Suicidal: Ideation (No SI) Homicidal: Ideation (No HI) Insight/Judgement Poor Remarks Difficult to tell, now that he is calmer, if he has some dyskinesias in the mouth or if he is just constantly muttering under his breath. No other abnormal motor movements noted. No signs of withdrawal noted. Labs He hasn't scored on the CIWA scale to receive Ativan since the . Labs reviewed. Vitals/IOs Vital Signs Date Time Temp Pulse Resp B/P Pulse Ox O2 Delivery O2 Flow Rate FiO2 06/13/16 05:55 97.9 72 17 118/61 95 06/10/16 16:18 Room Air Assessment & Plan Problem List: (1) Schizophrenia ICD Code: F20.9 (2) Alcohol abuse ICD Code: F10.10 (3) Cannabis abuse ICD Code: F12.10 Assessment & Plan Counselor has been able to contact friend who can provide consent for medications. Hopeful to initiate antipsychotic therapy this evening therefore. Since he has not been scoring on the CIWA scale, I will discontinue and monitor. Continue to monitor on the inpatient unit. Continue other medications and care as ordered. Justification for Cont. Inpt. Impairments in safety, self-care, reality construction, social function. Hopeful to pursue medication management now that we have a potential healthcare surrogate. High risk for decompensation. Discharge Planning Pending psychiatric stabilization. Request HC Surrog/Guard Advoc?: Yes Problem Qualifiers (1) Schizophrenia: Qualified Code: F20.0 - Paranoid schizophrenia Sheldon Dunne MD Jun 13, 2016 12:12
[2016-06-13] MEDS ORDERED: ZOLPIDEM TARTRATE 5 MG TAB PO PRN (16:30)
[2016-06-13 19:32] VITALS: BP 101/67; PULSE 68; RESP 16; TEMP 98.4; O2SAT 98
[2016-06-14 06:03] VITALS: BP 94/63; PULSE 65; RESP 16; TEMP 97.2
[2016-06-14] MEDS: FOLIC ACID 1 MG TAB PO SCH (09:00)
[2016-06-14] MEDS: BACITRACIN TOP OINT 15 GM TUBE TOP SCH ×2 (09:00→20:56)
[2016-06-14] MEDS: THIAMINE HCL 100 MG TAB PO SCH (09:22)
--- NOTE | 2016-06-14 10:09 | HHI.PYPN ---
Subjective Remarks Patient seen and examined with counselor and nurse. Chart reviewed. Case discussed with nursing staff. On my examination today, the patient is irritable and continues to mutter to himself. He denies audiovisual hallucinations but appears frankly internally stimulated as I said. He denies any suicidal or homicidal ideation. He remains fairly paranoid. He declines chemical dependency referral on discharge. Nursing staff informs me that we have obtained consents for medications and can begin treatment this morning. Review of Systems ROS Limitations: Psychotic, Poor Historian Other No physical complaints today Objective Alert: Yes [place]: Person, Place Mood: Angry Affect: Restricted (dysphoric) Memory Intact: Comment (not formally assessed) Hallucinations: Auditory (Int stim) Delusions: Yes Delusion Type: Paranoid Suicidal: Ideation (No SI) Homicidal: Ideation (No HI) Insight/Judgement Poor Remarks Besides possible oral dyskinesias noted yesterday, no other abnormal motor movements noted. No signs of withdrawal noted. Thought process perhaps a little more linear. Speech rambling. Labs Labs reviewed. No new labs. CIWA<8 since 06/11. Vitals/IOs Vital Signs Date Time Temp Pulse Resp B/P Pulse Ox O2 Delivery O2 Flow Rate FiO2 06/14/16 06:03 97.2 65 16 94/63 06/13/16 19:32 98 06/10/16 16:18 Room Air Assessment & Plan Problem List: (1) Schizophrenia ICD Code: F20.9 (2) Alcohol abuse ICD Code: F10.10 (3) Cannabis abuse ICD Code: F12.10 Assessment & Plan Initiate Prolixin this morning as planned. Weekend rounding physician, please consider titrating Prolixin to target psychosis as appropriate. Discontinue CIWA scale as the patient has had scores less than 8 for 3 days now. Continue to monitor on the inpatient unit. Continue other medications and care as ordered. Justification for Cont. Inpt. Impairment in self-care. Impairment in reality construction. Impairment in social function. Medication changes. High risk for decompensation in a lower level of care. Discharge Planning Pending psychiatric stabilization Request HC Surrog/Guard Advoc?: Yes Problem Qualifiers (1) Schizophrenia: Qualified Code: F20.0 - Paranoid schizophrenia Sheldon Dunne MD Jun 14, 2016 10:09
[2016-06-14 19:27] VITALS: BP 141/66; PULSE 71; RESP 16; TEMP 98.2; O2SAT 97
[2016-06-15 06:21] VITALS: BP 104/62; PULSE 66; RESP 18; TEMP 98; O2SAT 97
[2016-06-15] MEDS: BACITRACIN TOP OINT 15 GM TUBE TOP SCH ×2 (09:00→20:44)
[2016-06-15] MEDS: LORazepam 1 MG TAB PO PRN (09:27)
[2016-06-15] MEDS: FOLIC ACID 1 MG TAB PO SCH (09:27)
[2016-06-15] MEDS: THIAMINE HCL 100 MG TAB PO SCH (09:27)
--- NOTE | 2016-06-15 13:03 | HHI.PYPN ---
Subjective Remarks Pt seen and discussed with staff. Pt became agitated toward RN this morning and accused her of plotting to steal his money. He was given ativan X1 which calmed pt. He denies AH but appears to be responding to internal stimuli. He is paranoid and bizarre, conducting most of interview with head covered in blanket. He denies medication side effects and is compliant. No SI/HI. Objective Alert: Yes [place]: Person, Place Mood: Agitated Affect: Restricted (dysphoric) Memory Intact: Comment (not formally assessed) Hallucinations: Auditory (Int stim) Delusions: Yes Delusion Type: Paranoid Suicidal: Ideation (No SI) Homicidal: Ideation (No HI) Insight/Judgement poor Vitals/IOs Vital Signs Date Time Temp Pulse Resp B/P Pulse Ox O2 Delivery O2 Flow Rate FiO2 06/15/16 06:21 98.0 66 18 104/62 97 Assessment & Plan Problem List: (1) Schizophrenia ICD Code: F20.9 (2) Alcohol abuse ICD Code: F10.10 (3) Cannabis abuse ICD Code: F12.10 Assessment & Plan Continue current tx plan. Estimated LOS: days Justification for Cont. Inpt. impairments in reality construction, safety Request HC Surrog/Guard Advoc?: Yes Problem Qualifiers (1) Schizophrenia: Qualified Code: F20.0 - Paranoid schizophrenia Anna De La Cruz MD Jun 15, 2016 13:03
[2016-06-15 20:08] VITALS: BP 105/63; PULSE 69; RESP 19; TEMP 98.5; O2SAT 98
[2016-06-16 06:25] VITALS: BP 104/62; PULSE 65; RESP 16; TEMP 98.1; O2SAT 97
[2016-06-16] MEDS: THIAMINE HCL 100 MG TAB PO SCH (08:37)
[2016-06-16] MEDS: BACITRACIN TOP OINT 15 GM TUBE TOP SCH ×2 (08:38→20:52)
[2016-06-16] MEDS: FOLIC ACID 1 MG TAB PO SCH (08:41)
--- NOTE | 2016-06-16 14:21 | HHI.PYPN ---
Subjective Remarks Pt seen and discussed with staff. Staff report that last night pt was engaging in bizarre behaviors and exhibited echolalia and echopraxia. Today he has been more organized and agitation has decreased. He engages more in interview and denies medication side effects. He is compliant with medications and states that AH are "quieter today". No SI/HI. Review of Systems Psychiatric: COMPLAINS OF: Hallucinations Objective Alert: Yes [place]: Person, Place Mood: Calm Affect: Restricted Memory Intact: Comment (not formally assessed) Hallucinations: Auditory (Int stim) Delusions: Yes Delusion Type: Paranoid Suicidal: Ideation (No SI) Homicidal: Ideation (No HI) Insight/Judgement poor Vitals/IOs Vital Signs Date Time Temp Pulse Resp B/P Pulse Ox O2 Delivery O2 Flow Rate FiO2 06/16/16 06:25 98.1 65 16 104/62 97 Assessment & Plan Problem List: (1) Schizophrenia ICD Code: F20.9 (2) Alcohol abuse ICD Code: F10.10 (3) Cannabis abuse ICD Code: F12.10 Assessment & Plan Continue current tx plan. Estimated LOS: days Justification for Cont. Inpt. impairments in reality construction and social functioning Request HC Surrog/Guard Advoc?: Yes Problem Qualifiers (1) Schizophrenia: Qualified Code: F20.0 - Paranoid schizophrenia Anna De La Cruz MD Jun 16, 2016 14:21
[2016-06-16 18:00] VITALS: BP 110/65; PULSE 59; RESP 16; TEMP 99; O2SAT 92
[2016-06-17 06:22] VITALS: BP 113/68; PULSE 58; RESP 18; TEMP 97.5; O2SAT 96
[2016-06-17] MEDS: FOLIC ACID 1 MG TAB PO SCH (08:39)
[2016-06-17] MEDS: THIAMINE HCL 100 MG TAB PO SCH (08:40)
[2016-06-17] MEDS: BACITRACIN TOP OINT 15 GM TUBE TOP SCH ×2 (09:00→21:10)
--- NOTE | 2016-06-17 11:08 | HHI.PYPN ---
Subjective Remarks Patient seen and examined with counselor. Chart reviewed. Case discussed with nursing staff who reports patient remains somewhat irritable but is less explosive. He is receiving Prolixin as ordered. On my examination today, the patient is somewhat discharge focused. He remains somewhat paranoid. He denies audiovisual hallucinations but appears internally preoccupied. He denies side effects from the Prolixin. Review of Systems ROS Limitations: Poor Historian Other No physical complaints today Objective Alert: Yes [place]: Person, Place Mood: Calm Affect: Restricted (dysphoric) Memory Intact: Comment (not formally assessed) Hallucinations: Auditory (denies audiovisual hallucinations) Delusions: Yes Delusion Type: Paranoid Suicidal: Ideation (No SI) Homicidal: Ideation (No HI) Insight/Judgement Poor Remarks No abnormal motor movements noted. Patient remains somewhat disheveled. Thought process more linear than before the weekend. Speech remains a little terse but otherwise within normal limits. Labs Labs reviewed. No new labs. Vitals/IOs Vital Signs Date Time Temp Pulse Resp B/P Pulse Ox O2 Delivery O2 Flow Rate FiO2 06/17/16 06:22 97.5 58 18 113/68 96 Assessment & Plan Problem List: (1) Schizophrenia ICD Code: F20.9 (2) Alcohol abuse ICD Code: F10.10 (3) Cannabis abuse ICD Code: F12.10 Assessment & Plan Titrate Prolixin to 5 mg 3 times a day to manage residual psychosis. There is definite trajectory of improvement with this medication in this patient. Plan remains for Prolixin Decanoate prior to discharge. Continue other medications and care as ordered. Justification for Cont. Inpt. Impairment in reality construction and social function. High risk for decompensation pending psychiatric stabilization. Discharge Planning Pending psychiatric stabilization. Request HC Surrog/Guard Advoc?: Yes Problem Qualifiers (1) Schizophrenia: Qualified Code: F20.0 - Paranoid schizophrenia Sheldon Dunne MD Jun 17, 2016 11:08
[2016-06-17] MEDS ORDERED: fluPHENAZine HCL 25 MG/10 ML VIAL IM PRN (13:00)
[2016-06-17 18:00] VITALS: BP 109/63; PULSE 63; RESP 18; TEMP 98.1; O2SAT 97
[2016-06-17] MEDS: LORazepam 1 MG TAB PO PRN (21:10)
[2016-06-18 05:59] VITALS: BP 105/57; PULSE 75; RESP 17; TEMP 98
[2016-06-18] MEDS: FOLIC ACID 1 MG TAB PO SCH (08:42)
[2016-06-18] MEDS: THIAMINE HCL 100 MG TAB PO SCH (08:42)
[2016-06-18] MEDS: BACITRACIN TOP OINT 15 GM TUBE TOP SCH ×2 (08:42→21:35)
--- NOTE | 2016-06-18 12:34 | HHI.PYPN ---
Subjective Remarks Patient seen and examined with counselor and nurse in treatment team. Chart reviewed. Case discussed with nursing staff, counselor and occupational therapist. On my examination today, the patient is significantly calmer and less irritable than in previous days. He denies any suicidal or homicidal ideation. He continues to appear somewhat internally preoccupied and endorses auditory hallucinations of "a little black leticia and a girl" but denies any command auditory hallucinations to hurt himself or others. He denies side effects from medications. Review of Systems ROS Limitations: Poor Historian Other No physical complaints today Objective Alert: Yes [place]: Person, Place Mood: Calm Affect: Blunted Memory Intact: Comment (not formally assessed) Hallucinations: Auditory (as above) Delusions: Yes Delusion Type: Paranoid (lessening) Suicidal: Ideation (denies suicidal ideation) Homicidal: Ideation (denies homicidal ideation) Insight/Judgement Perhaps improving somewhat but still poor Remarks No new abnormal motor movements noted. Thought process much more linear. No signs of withdrawal noted. Labs Labs reviewed. No new labs. Vitals/IOs Vital Signs Date Time Temp Pulse Resp B/P Pulse Ox O2 Delivery O2 Flow Rate FiO2 06/18/16 05:59 98.0 75 17 105/57 06/17/16 18:00 97 Assessment & Plan Problem List: (1) Schizophrenia ICD Code: F20.9 (2) Alcohol abuse ICD Code: F10.10 (3) Cannabis abuse ICD Code: F12.10 Assessment & Plan Given good response to oral Prolixin, initiate Prolixin Decanoate at a dose of 25 mg IM. Continue oral Prolixin supplementation. Continue other medications and care as ordered. Justification for Cont. Inpt. Resolving impairments in reality construction and social function. Medication changes. High risk for decompensation pending psychiatric stabilization. Discharge Planning Pending psychiatric stabilization. Counselor to refer patient to the FACT team and also to reach out the patient's existing case finisher to have her come in and evaluate the patient to determine how far off his chronic baseline he is. Request HC Surrog/Guard Advoc?: Yes Problem Qualifiers (1) Schizophrenia: Qualified Code: F20.0 - Paranoid schizophrenia Sheldon Dunne MD Jun 18, 2016 12:34
[2016-06-18 20:11] VITALS: BP 117/64; PULSE 67; RESP 18; TEMP 98.5; O2SAT 97
[2016-06-18] MEDS: LORazepam 1 MG TAB PO PRN (21:33)
[2016-06-19 06:05] VITALS: BP 105/64; PULSE 72; RESP 18; TEMP 97.6; O2SAT 97
[2016-06-19] MEDS: BACITRACIN TOP OINT 15 GM TUBE TOP SCH ×2 (09:00→20:33)
[2016-06-19] MEDS: FOLIC ACID 1 MG TAB PO SCH (09:36)
[2016-06-19] MEDS: THIAMINE HCL 100 MG TAB PO SCH (09:36)
--- NOTE | 2016-06-19 15:03 | HHI.PYPN ---
Subjective Remarks Patient seen and examined. Chart reviewed. Case discussed with nursing staff. No behavioral problems noted. On my examination today, the patient is fairly calm and pleasant. He denies any SI or HI. Denies any AVH. Unfortunately, patient's disability case manager is no longer with the agency and so will not be able to come in to say if the patient is close to his baseline. He denies side effects from medications. Patient thanks us for the care he has received here. Review of Systems Other No physical complaints today Objective Alert: Yes [place]: Person, Place Mood: Calm Affect: Blunted Memory Intact: Comment (intact on clinical exam) Hallucinations: Other (denies AVH) Delusions: No Delusion Type: Other (no delusional material) Suicidal: Ideation (denies SI) Homicidal: Ideation (denies HI) Insight/Judgement Fair Remarks No motoric abnormalities noted. Thought process linear. Grooming and hygiene improved. Labs Labs reviewed. No new labs. Vitals/IOs Vital Signs Date Time Temp Pulse Resp B/P Pulse Ox O2 Delivery O2 Flow Rate FiO2 06/19/16 06:05 97.6 72 18 105/64 97 Assessment & Plan Problem List: (1) Schizophrenia ICD Code: F20.9 (2) Alcohol abuse ICD Code: F10.10 (3) Cannabis abuse ICD Code: F12.10 Assessment & Plan Continue oral Prolixin supplementing Prolixin Decanoate as ordered. Continue other medications and care as ordered. It is my strong suspicion that the patient is essentially at his psychiatric baseline. We will monitor overnight and anticipate discharge tomorrow. Justification for Cont. Inpt. Final discharge planning Discharge Planning Monitor overnight. Anticipate discharge tomorrow barring some clinical worsening. Request HC Surrog/Guard Advoc?: Yes Problem Qualifiers (1) Schizophrenia: Qualified Code: F20.0 - Paranoid schizophrenia Sheldon Dunne MD Jun 19, 2016 15:03
[2016-06-19 18:24] VITALS: BP 114/56; PULSE 61; RESP 16; TEMP 98.7; O2SAT 95
[2016-06-19] MEDS: LORazepam 1 MG TAB PO PRN (20:34)
[2016-06-20 05:39] VITALS: BP 99/60; PULSE 76; RESP 16; TEMP 98.4; O2SAT 98
[2016-06-20] MEDS ORDERED: FOLI1TAB4 PO (08:31)
[2016-06-20] MEDS ORDERED: VITA100T2 PO (08:31)
[2016-06-20] MEDS ORDERED: FLUP1INJ IM (08:31)
[2016-06-20] MEDS ORDERED: FLUP5TAB PO (08:31)
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
[2016-06-20] MEDS: BACITRACIN TOP OINT 15 GM TUBE TOP SCH (09:00)
[2016-06-20] MEDS: THIAMINE HCL 100 MG TAB PO SCH (09:31)
[2016-06-20] MEDS: FOLIC ACID 1 MG TAB PO SCH (09:32)
== END 2016-06-20 13:57 | disposition home or self-care (01) | DRG 885 ==
LOC: NEPE 18:52 → NEDA 06-10 15:57 → H270 06-10 17:01
PROVIDERS: ADMIT Psychiatry & Neurology Psychiatry; ATTEND Psychiatry & Neurology Psychiatry
DX: F20.0 Paranoid schizophrenia (principal); B19.20 Unspecified viral hepatitis C without hepatic coma; F10.10 Alcohol abuse, uncomplicated; F12.10 Cannabis abuse, uncomplicated; F17.210 Nicotine dependence, cigarettes, uncomplicated; S69.82XA Other specified injuries of left wrist, hand and finger(s), initial encounter; S69.81XA Other specified injuries of right wrist, hand and finger(s), initial encounter; X58.XXXA Exposure to other specified factors, initial encounter; Y93.89 Activity, other specified; Y92.238 Other place in hospital as the place of occurrence of the external cause
CPT/HCPCS: 70450; 73120; 80048; 80053; 80061; 80307; 80320; 80329; 81001; 83036; 85025; 90471; 90715; 96372; 96374; 96375; G0480; J1200; J1630; J2060; J2680

== ENCOUNTER 2017-02-01 15:06 | Inpatient (IN) | payer OTHER, MEDICARE ==
[~2017-02-01] VITALS: Ht 182.9 cm; Wt 72.0 kg
[~2017-02-01 15:06] MED LIST changes: +FLUP1INJ IM; +FLUP5TAB PO; +FOLI1TAB4 PO; -HALO100P IM; -HALO5 PO; -SERO100T PO; +VITA100T2 PO
[2017-02-01 15:14] VITALS: BP 131/72; PULSE 84; RESP 19; TEMP 98.4; O2SAT 94
[2017-02-01] MEDS ORDERED: HALOPERIDOL LACTATE 5 MG/ML AMP IM ONE ×2 (16:00→23:00)
[2017-02-01] MEDS ORDERED: LORazepam 2 MG/ML VIAL IM ONE ×2 (16:00→23:00)
[2017-02-01] MEDS ORDERED: ALUMINUM/MAGNESIUM/SIMETH 30 ML CUP PO PRN (16:15)
[2017-02-01] MEDS ORDERED: ACETAMINOPHEN 325 MG TAB PO PRN (16:15)
[2017-02-01] MEDS ORDERED: MAGNESIUM HYDROXIDE SUSP 30 ML CUP PO PRN (16:15)
[2017-02-01] MEDS ORDERED: LORazepam 2 MG/ML VIAL IM PRN (16:15)
[2017-02-01] MEDS: REMOVE OLD NICOTINE PATCH T-DERMAL SCH (20:49)
[2017-02-01] MEDS: LORazepam 1 MG TAB PO PRN (22:09)
[2017-02-01] MEDS: HALOPERIDOL 5 MG TAB PO SCH (22:30)
[2017-02-01] MEDS: MIRTAZAPINE 15 MG TAB PO SCH (22:30)
[2017-02-02 06:00] VITALS: BP 102/73; PULSE 81; RESP 17; TEMP 97.6; O2SAT 98
[2017-02-02] MEDS: HALOPERIDOL 5 MG TAB PO SCH (08:45)
[2017-02-02] MEDS: NICOTINE 21 MG/24 HR PATCH T-DERMAL SCH (08:45)
--- NOTE | 2017-02-02 09:34 | HHI.HP ---
Provisional Diagnosis Admission Date Feb 01, 2017 at 15:09 [place]. Schizophrenia chronic paranoid type f 20.0 Certification of Person's Competence To Provide Express and Informed Consent I have personally examined Sheng De Leon , a person being served at [facility] on, Feb 02, 2017 09:22. Express and informed consent means consent voluntarily given in writing, by a competent person, after sufficient explanation and disclosure of the subject matter involved to enable the person to make a knowing and willful decision without any element of force, fraud, deceit, duress, or other form of constraint or coercion. This person is 18 years of age or older, is not now known to be incompetent to consent to treatment with a guardian advocate, and does not have a health care surrogate or proxy currently making medical treatment decisions. I have found this person to be one of the following: [] Competent to provide express and informed consent, as defined above, for voluntary admission to this facility and is competent to provide express and informed consent for treatment. He/she has the consistent capacity to make well reasoned, willful, and knowing decisions concerning his or her medical or mental health treatment. The person fully and consistently understands the purpose of the admission for examination/placement and is fully capable of personally exercising all rights assured [place] Incompetent to provide express and informed consent to voluntary admission, and this is incompetent to provide express and informed consent to treatment. The person must be transferred to involuntary status and a petition for a guardian advocate filed with the Circuit Court. [xx] Refusing to provide express and informed consent to voluntary admission but is competent to provide express and informed consent for treatment. The person must be discharged or transferred to involuntary status. Form shall be completed within 24 hours of a person's arrival at the receiving facility and filed in the clinical record of each person: 1. Admitted on a voluntary basis 2. Permitted to provide express and informed consent to his/her own treatment 3. Allowed to transfer from involuntary to voluntary status 4. Prior to permitting a person to consent to his or her own treatment after having been previously found incompetent to consent to treatment. History of Present Illness Capacity: Lacks Capacity (patient lacks capacity to sign for admission, patient has capacity to sign for medications) Psych Chief Complaint: patient increase auditory hallucinations of command nature increase aggress HPI Patient is a 51-year-old white male well-known post multiple prior contacts comes here under [place] act from [facility] dated 02/01/17 at 12:30 PM the document reviewed and signed by an taj nunez that document reviewed essentially is stating noncompliant with medications finding with a light pole police found him confused verbal output bursts" cooperative it appears patient was seen screened at that facility. There is no documentation of urine toxicology being done will alcohol level was negative. Patient transferred here under the [place] act. On arrival here he became somewhat agitated needed ETO of Haldol and Ativan. Patient seen today in his room on 2700 with nurse Omayra. Is a somewhat malodorous disheveled white male further long dirty us hair and petit. He does recognize me from prior contacts does acknowledge noncompliance with medication and being homeless. Stating that the voices were becoming more intense commanding and threatening to him. Is somewhat vague about alcohol use and cocaine use. (Will be getting a urine toxicology on this gentleman) he is vague about follow-up through [facility] act. However he appears willing to go back on his medication. We did discuss medications patient is hospitalized here in May of this year under Dr. Dunne was discharged on Prolixin Decanoate 25 mg every 21 days and Prolixin oral 5 mg 3 times a day we will restart those medications. Hopeless be fairly short stay and we can address placement issues though it appears she is somewhat reluctant to consider an [facility] Review of Systems Constitutional: DENIES: Diaphoretic episodes, Fatigue, Fever, Weight gain, Weight loss, Chills, Dizziness, Change in appetite, Night Sweats Endocrine: DENIES: Heat/cold intolerance, Polydipsia, Polyuria, Polyphagia Eyes: DENIES: Blurred vision, Diplopia, Eye inflammation, Eye pain, Vision loss , Photosensitivity, Double Vision Ears, nose, mouth, throat: DENIES: Tinnitus, Hearing loss, Vertigo, Nasal discharge, Oral lesions, Throat pain, Hoarseness, Ear Pain, Running Nose, Epistaxis, Sinus Pain, Toothache, Odynophagia Respiratory: DENIES: Apneas, Cough, Snoring, Wheezing, Hemoptysis, Sputum production, Shortness of breath Cardiovascular: DENIES: Chest pain, Palpitations, Syncope, Dyspnea on Exertion , PND, Lower Extremity Edema, Orthopnea, Claudication Gastrointestinal: DENIES: Abdominal pain, Black stools, Bloody stools, Constipation, Diarrhea, Nausea, Vomiting, Difficulty Swallowing, Anorexia Genitourinary: DENIES: Sexual dysfunction, Urinary frequency, Urinary incontinence, Urgency, Hematuria, Dysuria, Nocturia, Penile Discharge, Testicular Pain, Testicular Swelling Musculoskeletal: DENIES: Joint pain, Muscle aches, Stiffness, Joint Swelling, Back pain, Neck pain Integumentary: DENIES: Abnormal pigmentation, Nail changes, Pruritus, Rash Hematologic/lymphatic: DENIES: Bruising, Lymphadenopathy Immunologic/allergic: DENIES: Eczema, Urticaria Psychiatric: COMPLAINS OF: Hallucinations, Agitation Past Psych History Psychological trauma history No known at this time Violence risk - others (6 mos) Patient psychotic talking to him threatening a light pole Violence risk - self (6 mos) Low to moderate Substance Abuse History Drugs/Alcohol past 12 months Patient alcohol level was negative though it has history of abuse of alcohol and cocaine Past Family Social History Coded Allergies: No Known Allergies (Verified , 06/09/16) Past Medical History Medically cleared [facility] Active Scripts Thiamine (Vitamin B-1) 100 Mg Tab, 100 MG PO DAILY for Nutritional Supplement for 30 Days, TAB 0 Refills Prov:Sheldon Dunne MD 06/20/16 Folic Acid (Folate) 1 Mg Tab, 1 MG PO DAILY for Nutritional Supplement for 30 Days, TAB 0 Refills Prov:Sheldon Dunne MD 06/20/16 Fluphenazine (Fluphenazine) 5 Mg Tab, 5 MG PO TID for Mental Health for 15 Days , TAB 1 Refill Continue oral fluphenazine at least until your next fluphenazine decanoate injection. Discuss with your outpatient provider how to proceed after that. Prov:Sheldon Dunne MD 06/20/16 Fluphenazine Decanoate Inj (Fluphenazine Decanoate Inj) 125 Mg/5 Ml Inj, 25 MG IM Q21D for Mental Health, #1 VIAL 0 Refills Next dose of fluphenazine decanoate due on 07/09/2016. Prov:Sheldon Dunne MD 06/20/16 Current Medications Medications (Trade) Dose Ordered Sig/Tania Route Start Time Stop Time Status Last Admin (Ativan) 1 mg Q6H PRN PO 02/01/17 16:15 02/01/17 22:09 (Ativan Inj) 1 mg Q6H PRN IM 02/01/17 16:15 (Tylenol) 650 mg Q4H PRN PO 02/01/17 16:15 02/01/17 22:10 (Milk Of Magnesia Liq) 30 ml DAILY PRN PO 02/01/17 16:15 (Mag-Al Plus Susp Liq) 30 ml Q6H PRN PO 02/01/17 16:15 (Habitrol 21 Mg Patch.24 Hr) 1 patch DAILY T-DERMAL 02/02/17 09:00 02/02/17 08:45 Miscellaneous Information 1 HS T-DERMAL 02/01/17 21:00 (Haldol) 5 mg BID PO 02/01/17 22:30 02/02/17 08:45 (Remeron) 30 mg HS PO 02/01/17 22:30 Family Psych History Unknown at this time Social History Patient homeless long history mental illness and substance abuse Patient's Strengths (min. 2) Patient verbal labile axis health care Physical Exam Patient seen screened medically cleared at [facility]. At the present time patient sitting quietly in his room he is in no acute distress. He is in no respiratory distress. No complaints of abdominal pain. Patient move all 4 extremities without difficulty. No abnormal motor movements noted. Vital Signs Vital Signs Date Time Temp Pulse Resp B/P (MAP) Pulse Ox O2 Delivery O2 Flow Rate FiO2 02/02/17 06:00 97.6 81 17 102/73 (83) 98 Mental Status Examination Appearance: Dirty, Disheveled, Malodorous Consciousness: Alert Orientation: Person, Place, Situation Motor Activity: Normal gait Speech: Hesitant, Slow Language: Adequate Fund of Knowledge: Poor Attention and Concentration: Other (fair) Memory: Unremarkable (fair) Mood: Other (restricted) Affect: Other (decreased range of motion intensity) Thought Process & Associations: Disorganized, Tangential Thought Content: Hallucinations Hallucination Type: Auditory Delusion Type: Paranoid Suicidal Ideation: No Suicidal Plan: No Suicidal Intention: No Homicidal Ideation: No Homicidal Plan: No Homicidal Intention: No Insight: Poor Judgment: Poor Assessment & Plan Problem List: (1) Schizophrenia ICD Codes: F20.9 - Schizophrenia, unspecified Status: Chronic Assessment & Plan Estimated LOS: days this time patient meets criteria for involuntary psychiatric consultation on the [place] act. I'll do first opinion request second opinion. They feel he is capacity to sign for his medications. We'll continue medication per his prior hospitalization in May of this year. Prolixin 5 mg 3 times a day, Prolixin decanoate 25 mg every 21 days. Of this is fairly short stay placement may become somewhat problematic Discharge Planning To be determined patient has been homeless showing some resistance to considering an [facility] Request HC Surrog/Guard Advoc?: No Problem Qualifiers (1) Schizophrenia: Qualified Codes: F20.0 - Paranoid schizophrenia Alexys Puga MD Feb 02, 2017 09:34
[2017-02-02 11:25] LABS: ANION GAP 4 MEQ/L (5-15); BICARBONATE 30.1 MEQ/L (21.0-32.0); BLOOD UREA NITROGEN 8 MG/DL (7-18); CHLORIDE 105 MEQ/L (98-107); GLOMERULAR FILTRATION RATE 105 ML/MIN (>89); POTASSIUM 4.2 MEQ/L (3.5-5.1); SODIUM (NA) 139 MEQ/L (136-145)
[2017-02-02 11:28] LABS: HDL CHOLESTEROL 65.7 MG/DL (40.0-60.0); LDL CHOLESTEROL 34 MG/DL (0-99)
[2017-02-02 16:46] VITALS: BP 106/65; PULSE 79; RESP 17; TEMP 97.8; O2SAT 96
[2017-02-02] MEDS: REMOVE OLD NICOTINE PATCH T-DERMAL SCH (20:22)
[2017-02-02] MEDS: MIRTAZAPINE 15 MG TAB PO SCH (20:23)
[2017-02-03 05:55] VITALS: BP 94/71; PULSE 76; RESP 16; TEMP 98.2; O2SAT 96
[2017-02-03] MEDS: FOLIC ACID 1 MG TAB PO SCH (08:48)
[2017-02-03] MEDS: THIAMINE HCL 100 MG TAB PO SCH (08:48)
[2017-02-03] MEDS: NICOTINE 21 MG/24 HR PATCH T-DERMAL SCH (08:48)
[2017-02-03] MEDS ORDERED: NICOTINE 21 MG/24 HR PATCH T-DERMAL SCH (09:00)
[2017-02-03 10:16] LABS: HEMOGLOBIN A1a 1.1 %; HEMOGLOBIN A1b 0.8 %; HEMOGLOBIN F 1.1 %; HEMOGLOBIN LA1C 2.2 %; HEMOGLOBIN P3 3.8 %
--- NOTE | 2017-02-03 15:15 | HHI.PYPN ---
Subjective Remarks Patient seen in [place] with nurse Daria and medical student oswaldo. Chart reviewed, patient compliant medication. Patient continues to voice auditory hallucinations, somewhat vigilant and irritable. He still has some oral buccal movements that might be turned I feel in nature we'll continue to observe Chief Complaint: patient increase auditory hallucinations of command nature increase aggress Review of Systems Except as stated in HPI: all other systems reviewed are Neg Mental Status Examination Appearance: Dirty, Disheveled, Malodorous Consciousness: Alert Orientation: Person, Place, Situation Motor Activity: Normal gait Speech: Hesitant, Slow Language: Adequate Fund of Knowledge: Poor Attention and Concentration: Other (fair) Memory: Unremarkable (fair) Mood: Other (restricted) Affect: Other (decreased range of motion intensity) Thought Process & Associations: Disorganized, Tangential Thought Content: Hallucinations Hallucination Type: Auditory Delusion Type: Paranoid Suicidal Ideation: No Suicidal Plan: No Suicidal Intention: No Homicidal Ideation: No Homicidal Plan: No Homicidal Intention: No Insight: Poor Judgment: Poor Results Labs Test 02/02/17 17:07 Urine Opiates Screen NEG Urine Barbiturates Screen NEG Urine Amphetamines Screen NEG Urine Benzodiazepines Screen NEG Urine Cocaine Screen NEG Urine Cannabinoids Screen POS Vitals/IOs Vital Signs Date Time Temp Pulse Resp B/P (MAP) Pulse Ox O2 Delivery O2 Flow Rate FiO2 02/03/17 05:55 98.2 76 16 94/71 (79) 96 Assessment & Plan Problem List: (1) Schizophrenia ICD Codes: F20.9 - Schizophrenia, unspecified Status: Chronic Assessment & Plan Estimated LOS: days patient continue psychotic with auditory hallucinations vigilance and somewhat isolative. Some buccal facial movements noted that appear to be somewhat tardive in nature Justification for Cont. Inpt. At this point patient will decompensate the placed a lower level of care Discharge Planning The same consideration needs to be for possible return to [facility] or perhaps referral towards state hospital Request HC Surrog/Guard Advoc?: No Problem Qualifiers (1) Schizophrenia: Qualified Codes: F20.0 - Paranoid schizophrenia Alexys Puga MD Feb 03, 2017 15:15
[2017-02-03 15:34] VITALS: BP 91/66; PULSE 86; RESP 18; TEMP 98; O2SAT 98
--- NOTE | 2017-02-03 19:27 | PD.PSY.CON ---
Provisional Diagnosis Admission Date Feb 01, 2017 at 15:09 [place] I. Schizophrenia chronic paranoid type f 20.0 History of Present Illness Service Psychiatry Consult Requested By Dr. Alexys Puga Reason for Consult Second opinion Primary Care Physician Unknown HPI Patient is a 51-year-old white male well-known post multiple prior contacts comes here under [employer] act from [facility] dated 02/01/17 at 12:30 PM the document reviewed and signed by an taj nunez that document reviewed essentially is stating noncompliant with medications finding with a light pole police found him confused verbal output bursts" cooperative it appears patient was seen screened at that facility. There is no documentation of urine toxicology being done will alcohol level was negative. Patient transferred here under the [place] act. On arrival here he became somewhat agitated needed ETO of Haldol and Ativan. Patient seen today in his room on 0 with nurse Omayra. Is a somewhat malodorous disheveled white male further long dirty us hair and petit. He does recognize me from prior contacts does acknowledge noncompliance with medication and being homeless. Stating that the voices were becoming more intense commanding and threatening to him. Is somewhat vague about alcohol use and cocaine use. (Will be getting a urine toxicology on this gentleman) he is vague about follow-up through [facility] act. However he appears willing to go back on his medication. We did discuss medications patient is hospitalized here in May of this year under Dr. Dunne was discharged on Prolixin Decanoate 25 mg every 21 days and Prolixin oral 5 mg 3 times a day we will restart those medications. Hopeless be fairly short stay and we can address placement issues though it appears she is somewhat reluctant to consider an [facility] 02/03/17 - Patient seen for second opinion. Patient found sitting on hospital bed calm and cooperative with interview but noted to be a poor historian. Patient was noted earlier in the day to have a verbal outburst but was redirected effectively. Patient states that he was admitted to the hospital because he was banging his head against the wall. He reports of AH but did not elaborate and also endorsed paranoid ideations "sometimes". Patient was noted to be internally preoccupied at time of interview with speech latency. He also states that he has been noncompliant with his medications and reports taking Haldol. Past Family Social History Coded Allergies: No Known Allergies (Verified , 06/09/16) Active Scripts Thiamine (Vitamin B-1) 100 Mg Tab, 100 MG PO DAILY for Nutritional Supplement for 30 Days, TAB 0 Refills Prov:Sheldon Dunne MD 06/20/16 Folic Acid (Folate) 1 Mg Tab, 1 MG PO DAILY for Nutritional Supplement for 30 Days, TAB 0 Refills Prov:Sheldon Dunne MD 06/20/16 Fluphenazine (Fluphenazine) 5 Mg Tab, 5 MG PO TID for Mental Health for 15 Days , TAB 1 Refill Continue oral fluphenazine at least until your next fluphenazine decanoate injection. Discuss with your outpatient provider how to proceed after that. Prov:Sheldon Dunne MD 06/20/16 Fluphenazine Decanoate Inj (Fluphenazine Decanoate Inj) 125 Mg/5 Ml Inj, 25 MG IM Q21D for Mental Health, #1 VIAL 0 Refills Next dose of fluphenazine decanoate due on 07/09/2016. Prov:Sheldon Dunne MD 06/20/16 Current Medications Medications (Trade) Dose Ordered Sig/Tania Route Start Time Stop Time Status Last Admin (Ativan) 1 mg Q6H PRN PO 02/01/17 16:15 02/01/17 22:09 (Ativan Inj) 1 mg Q6H PRN IM 02/01/17 16:15 02/02/17 10:09 (Tylenol) 650 mg Q4H PRN PO 02/01/17 16:15 02/01/17 22:10 (Milk Of Magnesia Liq) 30 ml DAILY PRN PO 02/01/17 16:15 (Mag-Al Plus Susp Liq) 30 ml Q6H PRN PO 02/01/17 16:15 (Habitrol 21 Mg Patch.24 Hr) 1 patch DAILY T-DERMAL 02/02/17 09:00 02/03/17 08:48 Miscellaneous Information 1 HS T-DERMAL 02/01/17 21:00 02/02/17 20:22 (Remeron) 30 mg HS PO 02/01/17 22:30 02/02/17 20:23 (Prolixin Decanoate Inj) 25 mg Q21D IM 02/02/17 11:00 02/02/17 13:03 (Prolixin) 5 mg TID PO 02/02/17 13:00 02/03/17 17:34 (Folate) 1 mg DAILY PO 02/03/17 09:00 02/03/17 08:48 (Vitamin B1) 100 mg DAILY PO 02/03/17 09:00 02/03/17 08:48 Patient's Strengths (min. 2) Patient verbal labile axis health care Physical Exam Vital Signs Vital Signs Date Time Temp Pulse Resp B/P (MAP) Pulse Ox O2 Delivery O2 Flow Rate FiO2 02/03/17 15:34 98.0 86 18 91/66 (74) 98 Mental Status Examination Appearance: Dirty, Disheveled, Malodorous Consciousness: Alert Orientation: Person, Place, Situation Motor Activity: Normal gait Speech: Hesitant, Slow Language: Adequate Fund of Knowledge: Poor Attention and Concentration: Other (fair) Memory: Unremarkable (fair) Mood: Other ("ok") Affect: Other (restricted and guarded) Thought Process & Associations: Disorganized Thought Content: Hallucinations Hallucination Type: Auditory Delusion Type: Paranoid Suicidal Ideation: No Suicidal Plan: No Suicidal Intention: No Homicidal Ideation: No Homicidal Plan: No Homicidal Intention: No Insight: Poor Judgment: Poor Assessment & Plan Problem List: (1) Schizophrenia ICD Codes: F20.9 - Schizophrenia, unspecified Status: Chronic Assessment & Plan Patient seen for second opinion. I have seen and examined this patient, reviewed the documentation and I agree and concur with Dr. Puga's assessment and plan. Request HC Surrog/Guard Advoc?: No Problem Qualifiers (1) Schizophrenia: Qualified Codes: F20.0 - Paranoid schizophrenia Markos Love MD Feb 03, 2017 19:27
[2017-02-03] MEDS: MIRTAZAPINE 15 MG TAB PO SCH (20:49)
[2017-02-03] MEDS: REMOVE OLD NICOTINE PATCH T-DERMAL SCH (20:52)
[2017-02-04 05:56] VITALS: BP 104/72; PULSE 62; RESP 16; TEMP 97.9; O2SAT 99
[2017-02-04] MEDS: NICOTINE 21 MG/24 HR PATCH T-DERMAL SCH (08:56)
[2017-02-04] MEDS: THIAMINE HCL 100 MG TAB PO SCH (08:56)
[2017-02-04] MEDS: FOLIC ACID 1 MG TAB PO SCH (08:56)
[2017-02-04] MEDS: LORazepam 1 MG TAB PO PRN (12:15)
--- NOTE | 2017-02-04 13:06 | HHI.PYPN ---
Subjective Remarks Patient seen in his room with nurse Kate and medical student oswaldo, patient continues irritable acknowledging intrusive irritating auditory hallucinations. Will increase his Prolixin to 10 mg twice a day from 5 mg 3 times a day, he does denies suicidality. Chief Complaint: patient increase auditory hallucinations of command nature increase aggress Review of Systems Except as stated in HPI: all other systems reviewed are Neg Mental Status Examination Appearance: Dirty, Disheveled, Malodorous Consciousness: Alert Orientation: Person, Place, Situation Motor Activity: Normal gait Speech: Hesitant, Slow Language: Adequate Fund of Knowledge: Poor Attention and Concentration: Other (fair) Memory: Unremarkable (fair) Mood: Other Affect: Other Thought Process & Associations: Disorganized Thought Content: Hallucinations Hallucination Type: Auditory Delusion Type: Paranoid Suicidal Ideation: No Suicidal Plan: No Suicidal Intention: No Homicidal Ideation: No Homicidal Plan: No Homicidal Intention: No Insight: Poor Judgment: Poor Results Vitals/IOs Vital Signs Date Time Temp Pulse Resp B/P (MAP) Pulse Ox O2 Delivery O2 Flow Rate FiO2 02/04/17 05:56 97.9 62 16 104/72 (83) 99 Assessment & Plan Problem List: (1) Schizophrenia ICD Codes: F20.9 - Schizophrenia, unspecified Status: Chronic Assessment & Plan Estimated LOS: days patient continues psychotic delusional somewhat irritable, she medication adjustment above Justification for Cont. Inpt. This time patient will decompensate placed in the lower level of care Discharge Planning While patient is reluctant to discuss possible penitentiary placement of with that is a alternative the needs to be explored with patient Request HC Surrog/Guard Advoc?: No Problem Qualifiers (1) Schizophrenia: Qualified Codes: F20.0 - Paranoid schizophrenia Alexys Puga MD Feb 04, 2017 13:06
[2017-02-04 15:39] VITALS: BP 116/80; PULSE 84; RESP 18; TEMP 97.9; O2SAT 99
[2017-02-04] MEDS: REMOVE OLD NICOTINE PATCH T-DERMAL SCH (20:53)
[2017-02-04] MEDS: MIRTAZAPINE 15 MG TAB PO SCH (20:54)
[2017-02-05 06:02] VITALS: BP 107/67; PULSE 62; RESP 16; TEMP 98.2; O2SAT 98
[2017-02-05] MEDS: FOLIC ACID 1 MG TAB PO SCH (08:51)
[2017-02-05] MEDS: THIAMINE HCL 100 MG TAB PO SCH (08:51)
[2017-02-05] MEDS: NICOTINE 21 MG/24 HR PATCH T-DERMAL SCH (08:52)
--- NOTE | 2017-02-05 15:25 | HHI.PYPN ---
Subjective Remarks Patient seen in his room with nurse Anastasia. Chart reviewed. Patient compliant medications. The patient remained psychotic with auditory hallucinations is also showing some insight into his disease is showing some appropriate responses to my questions. At this time he is willing to stay voluntarily to let us work with helping him resolving psychosis of the voices. Thus I'll lift [place] allow the patient to sign voluntary. He does not really want to go to [employer] tomorrow either Chief Complaint: patient increase auditory hallucinations of command nature increase aggress Review of Systems Except as stated in HPI: all other systems reviewed are Neg Mental Status Examination Appearance: Dirty, Disheveled, Malodorous Consciousness: Alert Orientation: Person, Place, Situation Motor Activity: Normal gait Speech: Hesitant, Slow Language: Adequate Fund of Knowledge: Poor Attention and Concentration: Other (fair) Memory: Unremarkable (fair) Mood: Other Affect: Other Thought Process & Associations: Disorganized Thought Content: Hallucinations Hallucination Type: Auditory Delusion Type: Paranoid Suicidal Ideation: No Suicidal Plan: No Suicidal Intention: No Homicidal Ideation: No Homicidal Plan: No Homicidal Intention: No Insight: Poor Judgment: Poor Results Vitals/IOs Vital Signs Date Time Temp Pulse Resp B/P (MAP) Pulse Ox O2 Delivery O2 Flow Rate FiO2 02/05/17 06:02 98.2 62 16 107/67 (80) 98 Assessment & Plan Problem List: (1) Schizophrenia ICD Codes: F20.9 - Schizophrenia, unspecified Status: Chronic Assessment & Plan Estimated LOS: days patient continues psychotic but is softening. Is showing some insight into his issues the point referral he is able to sign voluntary thus I'll lift [place] allow her sign voluntary Justification for Cont. Inpt. At this time patient decompensate if placed in a lower level of care Discharge Planning Patient wants to return for his own home when stabilized Request HC Surrog/Guard Advoc?: No Problem Qualifiers (1) Schizophrenia: Qualified Codes: F20.0 - Paranoid schizophrenia Alexys Puga MD Feb 05, 2017 15:25
[2017-02-05 16:00] VITALS: BP 113/72; PULSE 80; RESP 18; O2SAT 97
[2017-02-05] MEDS: MIRTAZAPINE 15 MG TAB PO SCH (20:39)
[2017-02-05] MEDS: REMOVE OLD NICOTINE PATCH T-DERMAL SCH (20:39)
[2017-02-06 06:05] VITALS: BP 107/61; PULSE 63; RESP 18; TEMP 97.9; O2SAT 100
[2017-02-06] MEDS: THIAMINE HCL 100 MG TAB PO SCH (08:51)
[2017-02-06] MEDS: FOLIC ACID 1 MG TAB PO SCH (08:51)
[2017-02-06] MEDS: NICOTINE 21 MG/24 HR PATCH T-DERMAL SCH (08:52)
--- NOTE | 2017-02-06 15:57 | HHI.PYPN ---
Subjective Remarks Patient seen in [place] with nurse Omayra and medical student oswaldo, patient states voices are diminishing. He does denies suicidality and denies homicidality. It appears he is contacted by staff from [facility] placement and follow-up care. It appears she is not very interested in placement. For now continue treatment Chief Complaint: patient increase auditory hallucinations of command nature increase aggress Review of Systems Except as stated in HPI: all other systems reviewed are Neg Mental Status Examination Appearance: Dirty, Disheveled, Malodorous Consciousness: Alert Orientation: Person, Place, Situation Motor Activity: Normal gait Speech: Hesitant, Slow Language: Adequate Fund of Knowledge: Poor Attention and Concentration: Other (fair) Memory: Unremarkable (fair) Mood: Other Affect: Other Thought Process & Associations: Disorganized Thought Content: Hallucinations Hallucination Type: Auditory Delusion Type: Paranoid Suicidal Ideation: No Suicidal Plan: No Suicidal Intention: No Homicidal Ideation: No Homicidal Plan: No Homicidal Intention: No Insight: Poor Judgment: Poor Results Vitals/IOs Vital Signs Date Time Temp Pulse Resp B/P (MAP) Pulse Ox O2 Delivery O2 Flow Rate FiO2 02/06/17 06:05 97.9 63 18 107/61 (76) 100 Assessment & Plan Problem List: (1) Schizophrenia ICD Codes: F20.9 - Schizophrenia, unspecified Status: Chronic Assessment & Plan Estimated LOS: days patient continue psychotic though it is softening. Compliant medications. For now continue treatment Justification for Cont. Inpt. At this time patient will decompensate if placed a lower level of care Discharge Planning Patient remains problematic patient reluctant to make a commitment Request HC Surrog/Guard Advoc?: No Problem Qualifiers (1) Schizophrenia: Qualified Codes: F20.0 - Paranoid schizophrenia Alexys Puga MD Feb 06, 2017 15:57
[2017-02-06 18:14] VITALS: BP 117/67; PULSE 71; RESP 18; TEMP 98; O2SAT 98
[2017-02-06] MEDS: MIRTAZAPINE 15 MG TAB PO SCH (20:27)
[2017-02-06] MEDS: REMOVE OLD NICOTINE PATCH T-DERMAL SCH (20:30)
[2017-02-07 06:09] VITALS: BP 107/67; PULSE 57; TEMP 98.4; O2SAT 97
[2017-02-07] MEDS: NICOTINE 21 MG/24 HR PATCH T-DERMAL SCH (09:03)
[2017-02-07] MEDS: THIAMINE HCL 100 MG TAB PO SCH (09:03)
[2017-02-07] MEDS: FOLIC ACID 1 MG TAB PO SCH (09:03)
--- NOTE | 2017-02-07 16:15 | HHI.PYPN ---
Subjective Remarks Patient seen in his room with nurse Gurjit. Patient had is here, and his petit shaved to just a mustache by staff. He looks quite well he is quite proud of himself. Patient continues to denies suicidality homicidality states the voices are going. Is compliant medication. Patient continues to do well over the weekend will consider discharge on Friday. Though he states he only has 61 sense to his name and place she may wish to go to his in [facility] Chief Complaint: patient increase auditory hallucinations of command nature increase aggress Review of Systems Except as stated in HPI: all other systems reviewed are Neg Mental Status Examination Appearance: Dirty, Disheveled, Malodorous Consciousness: Alert Orientation: Person, Place, Situation Motor Activity: Normal gait Speech: Hesitant, Slow Language: Adequate Fund of Knowledge: Poor Attention and Concentration: Other (fair) Memory: Unremarkable (fair) Mood: Other Affect: Other Thought Process & Associations: Disorganized Thought Content: Hallucinations Hallucination Type: Auditory Delusion Type: Paranoid Suicidal Ideation: No Suicidal Plan: No Suicidal Intention: No Homicidal Ideation: No Homicidal Plan: No Homicidal Intention: No Insight: Poor Judgment: Poor Results Vitals/IOs Vital Signs Date Time Temp Pulse Resp B/P (MAP) Pulse Ox O2 Delivery O2 Flow Rate FiO2 02/07/17 06:09 98.4 57 107/67 (80) 97 02/06/17 18:14 18 Assessment & Plan Problem List: (1) Schizophrenia ICD Codes: F20.9 - Schizophrenia, unspecified Status: Chronic Assessment & Plan Estimated LOS: days patient continue psychotic with softening. Voices are diminishing. His no behavioral issues. For now continue treatment Justification for Cont. Inpt. This time patient decompensate the placed in a lower level of care Discharge Planning Patient is reluctant to discuss placement especially group over [facility]. He says he has some type of Place [place] Request HC Surrog/Guard Advoc?: No Problem Qualifiers (1) Schizophrenia: Qualified Codes: F20.0 - Paranoid schizophrenia Alexys Puga MD Feb 07, 2017 16:15
[2017-02-07 18:25] VITALS: BP 103/67; PULSE 79; RESP 17; TEMP 98.2; O2SAT 99
[2017-02-07] MEDS: MIRTAZAPINE 15 MG TAB PO SCH (20:23)
[2017-02-07] MEDS: REMOVE OLD NICOTINE PATCH T-DERMAL SCH (20:49)
[2017-02-08 06:10] VITALS: BP 103/66; PULSE 63; RESP 17; TEMP 97.5; O2SAT 97
[2017-02-08] MEDS: FOLIC ACID 1 MG TAB PO SCH (09:23)
[2017-02-08] MEDS: THIAMINE HCL 100 MG TAB PO SCH (09:23)
[2017-02-08] MEDS: NICOTINE 21 MG/24 HR PATCH T-DERMAL SCH (09:23)
--- NOTE | 2017-02-08 16:36 | HHI.PYPN ---
Subjective Remarks Patient was seen and case discussed with nursing. Patient is pleasant and cooperative with exam. Behaving well on the unit. Psychosis continues to resolve. Patient remains disheveled with poor insight into admission. Tolerating medications well Chief Complaint: patient increase auditory hallucinations of command nature increase aggress Mental Status Examination Appearance: Dirty, Disheveled, Malodorous Consciousness: Alert Orientation: Person, Place, Situation Motor Activity: Normal gait Speech: Hesitant, Slow Language: Adequate Fund of Knowledge: Poor Attention and Concentration: Other (fair) Memory: Unremarkable (fair) Mood: Other Affect: Other Thought Process & Associations: Disorganized Thought Content: Hallucinations Hallucination Type: Auditory (nonspecific) Delusion Type: Paranoid Suicidal Ideation: No Suicidal Plan: No Suicidal Intention: No Homicidal Ideation: No Homicidal Plan: No Homicidal Intention: No Insight: Poor Judgment: Poor Results Vitals/IOs Vital Signs Date Time Temp Pulse Resp B/P (MAP) Pulse Ox O2 Delivery O2 Flow Rate FiO2 02/08/17 06:10 97.5 63 17 103/66 (78) 97 Assessment & Plan Problem List: (1) Schizophrenia ICD Codes: F20.9 - Schizophrenia, unspecified Status: Chronic Assessment & Plan Continue current treatment plan Justification for Cont. Inpt. Patient would decompensate in a less restrictive setting Request HC Surrog/Guard Advoc?: No Problem Qualifiers (1) Schizophrenia: Qualified Codes: F20.0 - Paranoid schizophrenia Fabian Castellon DO Feb 08, 2017 16:36
[2017-02-08 17:52] VITALS: BP 111/75; PULSE 72; RESP 18; TEMP 98.6; O2SAT 98
[2017-02-08] MEDS: REMOVE OLD NICOTINE PATCH T-DERMAL SCH (21:00)
[2017-02-08] MEDS: MIRTAZAPINE 15 MG TAB PO SCH (21:06)
[2017-02-09 05:48] VITALS: BP 91/62; PULSE 62; RESP 16; TEMP 97.6; O2SAT 99
[2017-02-09] MEDS: NICOTINE 21 MG/24 HR PATCH T-DERMAL SCH (09:30)
[2017-02-09] MEDS: THIAMINE HCL 100 MG TAB PO SCH (09:31)
[2017-02-09] MEDS: FOLIC ACID 1 MG TAB PO SCH (09:31)
--- NOTE | 2017-02-09 16:05 | HHI.PYPN ---
Subjective Remarks Patient was seen and case discussed with nursing. Per nursing, this morning, he was yelling and cursing at the air. When asked about it patient becomes irritable. Insight remains poor. Seclusive to self. Otherwise, behaving well on the unit. Tolerating medications well Chief Complaint: patient increase auditory hallucinations of command nature increase aggress Mental Status Examination Appearance: Dirty, Disheveled, Malodorous Consciousness: Alert Orientation: Person, Place, Situation Motor Activity: Normal gait Speech: Hesitant, Slow Language: Adequate Fund of Knowledge: Poor Attention and Concentration: Other (fair) Memory: Unremarkable (fair) Mood: Other Affect: Other Thought Process & Associations: Disorganized Thought Content: Hallucinations, Delusional Hallucination Type: Auditory (responding) Delusion Type: Paranoid Suicidal Ideation: No Suicidal Plan: No Suicidal Intention: No Homicidal Ideation: No Homicidal Plan: No Homicidal Intention: No Insight: Poor Judgment: Poor Results Vitals/IOs Vital Signs Date Time Temp Pulse Resp B/P (MAP) Pulse Ox O2 Delivery O2 Flow Rate FiO2 02/09/17 05:48 97.6 62 16 91/62 (72) 99 Assessment & Plan Problem List: (1) Schizophrenia ICD Codes: F20.9 - Schizophrenia, unspecified Status: Chronic Assessment & Plan Continue current treatment plan Justification for Cont. Inpt. Patient will decompensate in a less restrictive setting Request HC Surrog/Guard Advoc?: No Problem Qualifiers (1) Schizophrenia: Qualified Codes: F20.0 - Paranoid schizophrenia Fabian Castellon DO Feb 09, 2017 16:04
[2017-02-09 17:18] VITALS: BP 113/74; PULSE 70; RESP 16; TEMP 97.4; O2SAT 99
[2017-02-09] MEDS: MIRTAZAPINE 15 MG TAB PO SCH (20:26)
[2017-02-09] MEDS: LORazepam 1 MG TAB PO PRN (20:28)
[2017-02-09] MEDS: REMOVE OLD NICOTINE PATCH T-DERMAL SCH (21:00)
[2017-02-10 05:41] VITALS: BP 95/60; PULSE 65; RESP 16; TEMP 97.3; O2SAT 98
[2017-02-10 08:16] VITALS: BP 108/66; PULSE 65
[2017-02-10] MEDS: THIAMINE HCL 100 MG TAB PO SCH (09:01)
[2017-02-10] MEDS: FOLIC ACID 1 MG TAB PO SCH (09:01)
[2017-02-10] MEDS: NICOTINE 21 MG/24 HR PATCH T-DERMAL SCH (09:02)
--- NOTE | 2017-02-10 13:18 | HHI.PYPN ---
Subjective Remarks Patient seen in day room with nurse Daria and medical student oswaldo, patient calm with me though other underlying irritability and grouchiness. He does wish to be discharged. All he is irritable his show no other behavioral problems. Is compliant with his medications. He is somewhat vague about auditory hallucinations today. For now continue treatment. Patient is voluntary at the present time. At this time I feel he may be reaching his baseline. Consider possible discharge 1-2 days Chief Complaint: patient increase auditory hallucinations of command nature increase aggress Review of Systems Except as stated in HPI: all other systems reviewed are Neg Mental Status Examination Appearance: Dirty, Disheveled, Malodorous Consciousness: Alert Orientation: Person, Place, Situation Motor Activity: Normal gait Speech: Hesitant, Slow Language: Adequate Fund of Knowledge: Poor Attention and Concentration: Other (fair) Memory: Unremarkable (fair) Mood: Other Affect: Other Thought Process & Associations: Disorganized Thought Content: Hallucinations, Delusional Hallucination Type: Auditory Delusion Type: Paranoid Suicidal Ideation: No Suicidal Plan: No Suicidal Intention: No Homicidal Ideation: No Homicidal Plan: No Homicidal Intention: No Insight: Poor Judgment: Poor Results Vitals/IOs Vital Signs Date Time Temp Pulse Resp B/P (MAP) Pulse Ox O2 Delivery O2 Flow Rate FiO2 02/10/17 08:16 65 108/66 (80) 02/10/17 05:41 97.3 16 98 Assessment & Plan Problem List: (1) Schizophrenia ICD Codes: F20.9 - Schizophrenia, unspecified Status: Chronic Assessment & Plan Estimated LOS: days patient continues somewhat irritable and grumpy. Though compliant medications. Is somewhat vigilant though his denying voices at the present time. For now continue treatment Justification for Cont. Inpt. At this time patient may decompensate with placed in a lower level of care Discharge Planning It appears patient may be reaching his baseline, is compliant with medications. Consider discharge 1-2 days Request HC Surrog/Guard Advoc?: No Problem Qualifiers (1) Schizophrenia: Qualified Codes: F20.0 - Paranoid schizophrenia Alexys Puga MD Feb 10, 2017 13:18
[2017-02-10 18:00] VITALS: BP 107/55; PULSE 78; RESP 16; TEMP 98.3; O2SAT 95
[2017-02-10] MEDS: MIRTAZAPINE 15 MG TAB PO SCH (20:42)
[2017-02-10] MEDS: REMOVE OLD NICOTINE PATCH T-DERMAL SCH (20:48)
[2017-02-11 06:11] VITALS: BP 90/66; PULSE 67; RESP 16; TEMP 97.9; O2SAT 98
[2017-02-11] MEDS: THIAMINE HCL 100 MG TAB PO SCH (08:26)
[2017-02-11] MEDS: FOLIC ACID 1 MG TAB PO SCH (08:26)
[2017-02-11] MEDS: NICOTINE 21 MG/24 HR PATCH T-DERMAL SCH ×2 (08:27→08:44)
[2017-02-11] MEDS ORDERED: REME30TA PO (11:59)
[2017-02-11] MEDS ORDERED: FLUP1INJ IM (11:59)
[2017-02-11] MEDS ORDERED: FOLI1TAB6 PO (11:59)
[2017-02-11] MEDS ORDERED: GNP100TA3 PO (11:59)
[2017-02-11] MEDS ORDERED: FLUP10TA PO (11:59)
--- NOTE | 2017-02-11 12:04 | HHI.DS ---
Psychiatry Discharge Summary Inpatient Psychiatric care?: Yes Advance Directive: No Reason Not Provided: Not in medical record. Mental Health AdvanceDirective: No Health Care Proxy: No Admission Admission Date Feb 01, 2017 at 15:09 Admission Diagnosis: (1) Schizophrenia ICD Code: F20.9 - Schizophrenia, unspecified Brief History Patient is a 51-year-old white male well-known post multiple prior contacts comes here under [employer] act from [facility] dated 02/01/17 at 12:30 PM the document reviewed and signed by an taj nunez that document reviewed essentially is stating noncompliant with medications finding with a light pole police found him confused verbal output bursts" cooperative it appears patient was seen screened at that facility. There is no documentation of urine toxicology being done will alcohol level was negative. Patient transferred here under the [place] act. On arrival here he became somewhat agitated needed ETO of Haldol and Ativan. Patient seen today in his room on 2700 with nurse Omayra. Is a somewhat malodorous disheveled white male further long dirty us hair and petit. He does recognize me from prior contacts does acknowledge noncompliance with medication and being homeless. Stating that the voices were becoming more intense commanding and threatening to him. Is somewhat vague about alcohol use and cocaine use. (Will be getting a urine toxicology on this gentleman) he is vague about follow-up through [facility]. However he appears willing to go back on his medication. We did discuss medications patient is hospitalized here in May of this year under Dr. Dunne was discharged on Prolixin Decanoate 25 mg every 21 days and Prolixin oral 5 mg 3 times a day we will restart those medications. Hopeless be fairly short stay and we can address placement issues though it appears she is somewhat reluctant to consider an [facility] 02/03/17 - Patient seen for second opinion. Patient found sitting on hospital bed calm and cooperative with interview but noted to be a poor historian. Patient was noted earlier in the day to have a verbal outburst but was redirected effectively. Patient states that he was admitted to the hospital because he was banging his head against the wall. He reports of AH but did not elaborate and also endorsed paranoid ideations "sometimes". Patient was noted to be internally preoccupied at time of interview with speech latency. He also states that he has been noncompliant with his medications and reports taking Haldol. Tobacco Use In Past 30 Days: 5 or More Cigarettes/Day Alcohol Use: 4 or More Times Per Week Hospital Course Patient showed no significant behavioral problems through the admission, his underlying "feistiness" irritability lability persisted though he was calmer, his paranoia diminished. Denying any significant voices. He does show some insight into his mental illness and his need for compliance with medication. Though I question his ability to maintain this cooperation. However he does denies suicidality homicidality. States he is willing to be compliant with medications and follow-up. Thus I will discharge patient today to himself referred to [facility]. Referrer Cord[facility]gen. With Rx 1 month oral medications and follow-up 02/23 for his Prolixin Decanoate injection Results Blood Pressure 90 / 66 Vital Signs Date Time Temp Pulse Resp B/P (MAP) Pulse Ox O2 Delivery O2 Flow Rate FiO2 02/11/17 06:11 97.9 67 16 90/66 (74) 98 Laboratory Results Test 02/02/17 10:06 Cholesterol Level 129 MG/DL (120-200) HDL Cholesterol 65.7 MG/DL (40.0-60.0) Hemoglobin A1c 5.6 % (4.3-6.0) LDL Cholesterol 34 MG/DL (0-99) Triglycerides Level 148 MG/DL (42-150) Summary of Procedures None done Pending results at discharge: No Medications # of Antipsychotic meds at D/C: 1 Approp Antipsych med options 1 - Minimum of three failed multiple trials of monotherapy. 2 - Documented plan to taper to monotherapy due to previous use of multiple meds OR cross-taper in progress at D/C. 3 - Documentation of augmentation of Clozapine. 4 - Justification other than those listed in allowable values 1-3, document here : Discharge Discharge Date: Feb 11, 2017 Discharge Diagnosis: (1) Schizophrenia Diagnosis: Principal ICD Code: F20.9 - Schizophrenia, unspecified Status: Chronic (2) Cannabis abuse Diagnosis: Secondary ICD Code: F12.10 - Cannabis abuse, uncomplicated Status: Acute Pt Condition on Discharge: Stable Discharge Disposition: Discharge Home Discharge Instructions Diet Instructions: As Tolerated, No Restrictions Activities you can perform: Regular-No Restrictions Scheduled Appointment: [facility] Appointment Date: Feb 12, 2017 Appointment Time: 7:30 am Discharge Time > 30 minutes Mental Status Examination Appearance: Dirty, Disheveled, Malodorous Consciousness: Alert Orientation: Person, Place, Situation Motor Activity: Normal gait Speech: Hesitant, Slow Language: Adequate Fund of Knowledge: Poor Attention and Concentration: Other (fair) Memory: Unremarkable (fair) Mood: Other Affect: Other Thought Process & Associations: Disorganized Thought Content: Hallucinations, Delusional Hallucination Type: Auditory Delusion Type: Paranoid Suicidal Ideation: No Suicidal Plan: No Suicidal Intention: No Homicidal Ideation: No Homicidal Plan: No Homicidal Intention: No Insight: Poor Judgment: Poor Discharge/Advance Care Plan Health Problems: (1) Schizophrenia Goals to promote your health * To prevent worsening of your condition and complications * To maintain your health at the optimal level Directions to meet your goals Take your medications as prescribed Follow your dietary instruction Follow activity as directed Keep your appointments as scheduled Take your immunizations and boosters as scheduled If your symptoms worsen call your PCP, if no PCP go to Urgent Care Center or Emergency Room For 18/11 questions related to your inpatient stay or results of tests pending at discharge, please contact Dr. Alexys Puga at Smoking is Dangerous to Your Health. Avoid second hand smoking Problem Qualifiers (1) Schizophrenia: Qualified Codes: F20.0 - Paranoid schizophrenia Alexys Puga MD Feb 11, 2017 12:04
== END 2017-02-11 15:00 | disposition home or self-care (01) | DRG 885 ==
LOC: H270 15:09
PROVIDERS: ADMIT Psychiatry & Neurology Psychiatry; ATTEND Psychiatry & Neurology Psychiatry
DX: F20.0 Paranoid schizophrenia (principal); Z91.14 Patient's other noncompliance with medication regimen; F12.10 Cannabis abuse, uncomplicated; Z59.0 Homelessness
CPT/HCPCS: 80048; 80061; 80307; 83036; J2060; J2680